=== PATIENT | female | born 1975 | race African-American/Black ===

== ENCOUNTER 2016-08-16 09:33 | Emergency (ER) | payer MEDICAID ==
[~2016-08-16] VITALS: Ht 157.5 cm; Wt 97.0 kg
[~2016-08-16 09:33] MED LIST: MOBI15TA PO
[2016-08-16 09:40] VITALS: BP 145/92; PULSE 100; RESP 16; TEMP 98.9; O2SAT 98
[2016-08-16] MEDS ORDERED: ULTR50TA5 PO (10:29)
[2016-08-16] MEDS ORDERED: BACT800T5 PO (10:29)
--- NOTE | 2016-08-16 10:30 | PD ---
HPI . Pain and swelling of the right fourth finger Chief Complaint: Skin Problem Time Seen by Provider: 10:25 Travel History International Travel<30 days: No Contact w/Intl Traveler<30days: No Traveled to known affect area: No History of Present Illness HPI Patient presents with a one month history of pain and swelling at the tip of the right fourth finger. She has been treating it peroxide soaks. She states that it just won't go away. She has not had any fever. [id number]: Right fourth finger DURATION: One month TIMING: Continuous MODIFYING FACTORS: Unrelieved by peroxide soaks ASSOCIATED SYMPTOMS: No associated fever PFSH Past Medical History Anemia: Yes Cancer: No Cardiovascular Problems: No Diabetes: No Diminished Hearing: No Endocrine: No Gastrointestinal Disorders: No Genitourinary: No Hepatitis: No Hiatal Hernia: No Hypertension: No Immune Disorder: Yes (possible fibromyalgia) Musculoskeletal: Yes (mid back pain) Neurologic: No Psychiatric: No Reproductive: No Respiratory: Yes Immunizations Current: Yes Thyroid Disease: No Influenza Vaccination: No ?: Not : 4 Para: 3 Miscarriage: 1 : 0 Ectopic : Yes Ovarian Cysts: Yes Tubal Ligation: Yes Past Surgical History AICD: No Gynecologic Surgery: Yes (tubaligation) Joint Replacement: No Pacemaker: No Other Surgery: Yes Social History Alcohol Use: Yes (occas) Tobacco Use: No (NEVER) Substance Use: No Allergies-Medications (Allergen,Severity, Reaction): Coded Allergies: No Known Allergies (Unverified , 08/16/16) Reported Meds & Prescriptions Reported Meds & Active Scripts Active No Active Prescriptions or Reported Medications Review of Systems Except as stated in HPI: all other systems reviewed are Neg General / Constitutional: No: Fever, Chills Skin: Positive Lesions Physical Exam Narrative GENERAL: Awake and alert and in no acute distress. SKIN: Warm and dry. She has some induration on the ulnar side of her right fourth fingernail. There is no drainage. There is no fluctuance. CARDIOVASCULAR: Regular rate and rhythm. RESPIRATORY: No accessory muscle use. MUSCULOSKELETAL: No obvious deformities. No edema. NEUROLOGICAL: Awake and alert. No obvious cranial nerve deficits. Motor grossly within normal limits. Normal speech. PSYCHIATRIC: Appropriate mood and affect; insight and judgment normal. Data Data Last Documented VS Vital Signs Date Time Temp Pulse Resp B/P Pulse Ox O2 Delivery O2 Flow Rate FiO2 08/16/16 09:40 98.9 100 16 145/92 98 MDM Medical Decision Making Medical Screen Exam Complete: Yes Emergency Medical Condition: Yes Differential Diagnosis My differential diagnosis includes but is not limited to localized wound infection, cellulitis, abscess Narrative Course Patient presents with pain and swelling around her right fourth fingernail. She has a paronychia on exam. It does not look "drainable." Diagnosis Primary Impression: Paronychia of finger of right hand Patient Instructions: General Instructions, Paronychia (ED) Additional Instructions: Warm Epsom salt and water soaks several times per day. Med/Other Pt SpecificInfo: Prescription(s) given Scripts Tramadol (Ultram)50 Mg Tab50 Mg PO Q4H PRN (PAIN) #12 TAB Ref 0 Prov:Darya Arora MD 08/16/16 Sulfamethoxazole-Trimethoprim (Bactrim DS)800-160 Mg Tab1 Tab PO BID #20 TAB Ref 0 Prov:Darya Arora MD 08/16/16 Disposition: 01 DISCHARGE HOME Condition: Stable Darya Arora MD Aug 16, 2016 10:30
== END 2016-08-16 10:41 | disposition home or self-care (01) ==
LOC: PHED 09:33
DX: L03.011 Cellulitis of right finger (principal)
CPT/HCPCS: 99282

== ENCOUNTER 2016-09-07 19:39 | Emergency (ER) | payer MEDICAID ==
[~2016-09-07] VITALS: Ht 157.5 cm; Wt 97.9 kg
[~2016-09-07 19:39] MED LIST changes: +BACT800T5 PO; -MOBI15TA PO; +ULTR50TA5 PO
[2016-09-07 19:41] VITALS: BP 118/73; PULSE 110; RESP 18; TEMP 98.5; O2SAT 98
[2016-09-07] MEDS ORDERED: SODIUM CHLORIDE 0.9% FLUSH 10 ML FLUSH IV FLUSH PRN (20:15)
[2016-09-07 20:27] LABS: AUTOMATED NEUTROPHIL # 2.9 TH/MM3 (1.8-7.7); BASOPHIL # 0.1 TH/MM3 (0-0.2); BASOPHIL % 1.3 % (0.0-2.0); EOSINOPHIL # 0.4 TH/MM3 (0-0.4); EOSINOPHIL % 5.7 % (0.0-4.0); HEMATOCRIT 33.1 % (35.0-46.0); LYMPH % 44.7 % (9.0-44.0); LYMPHOCYTE # 3.3 TH/MM3 (1.0-4.8); MEAN CELL VOLUME 79.7 FL (80.0-100.0); MEAN CORPUSCULAR HEMOGLOBIN 26.8 PG (27.0-34.0); MEAN CORPUSCULAR HGB CONC 33.6 % (32.0-36.0); MONO % 9.3 % (0.0-8.0); PLATELET COUNT 281 TH/MM3 (150-450); RED BLOOD COUNT 4.16 MIL/MM3 (4.00-5.30); RED CELL DISTRIBUTION WIDTH 14.4 % (11.6-17.2); WHITE BLOOD COUNT 7.4 TH/MM3 (4.0-11.0)
[2016-09-07 20:29] LABS: BLOOD, URINE NEG (NEG); GLUCOSE,URINE NEG (NEG); KETONE, URINE NEG (NEG); NITRITE,URINE NEG (NEG); PH, URINE 6.5 (5.0-8.5)
[2016-09-07 20:32] LABS: URINE COLOR YELLOW (YELLW/STRAW)
[2016-09-07 20:34] LABS: HEMO FLAGS DIFF FINAL
[2016-09-07 20:36] LABS: RBC, URINE 0-2 /hpf (0-3); SQUAMOUS EPITHELIAL CELL URINE 0-5 /hpf (0-5); WBC, URINE 0-2 /hpf (0-5)
[2016-09-07 20:37] LABS: COMMENT (UR) CULT NOT INDICATED; CULTURE IF INDICATED CULT NOT INDICATED
[2016-09-07 20:43] LABS: CHLORIDE 107 MEQ/L (98-107); POTASSIUM 3.6 MEQ/L (3.5-5.1); SODIUM (NA) 141 MEQ/L (136-145)
[2016-09-07 20:47] LABS: ANION GAP 7 MEQ/L (5-15); BICARBONATE 27.4 MEQ/L (21.0-32.0); BLOOD UREA NITROGEN 15 MG/DL (7-18)
[2016-09-07 20:50] LABS: ALT (GPT) 24 U/L (10-53); AST (GOT) 13 U/L (15-37); GLOMERULAR FILTRATION RATE 149 ML/MIN (>89)
[2016-09-07 20:51] LABS: TOTAL BILIRUBIN ADULT 0.3 MG/DL (0.2-1.0)
[2016-09-07 20:53] LABS: ALKALINE PHOSPHATASE 94 U/L (45-117)
[2016-09-07] MEDS ORDERED: cefTRIAXone INJ 250 MG in SODIUM CHLORIDE 0.9% INJ 100 ML IV ONE (22:30)
[2016-09-07] MEDS ORDERED: AZITHROMYCIN 250 MG TAB PO ONE (22:30)
[2016-09-07] MEDS ORDERED: METR0.7528 VAGINAL (22:31)
[2016-09-07] MEDS ORDERED: PROT40TA PO (22:31)
--- NOTE | 2016-09-07 22:31 | PD ---
HPI Chief Complaint: Abdominal Pain Time Seen by Provider: 20:01 Travel History International Travel<30 days: No Contact w/Intl Traveler<30days: No Traveled to known affect area: No History of Present Illness HPI 41-year-old female presents to the emergency department for complaint of intermittent abdominal pain and vaginal discharge. Patient states symptoms have been present times one week. Patient denies any pain at this time. Abdominal pain when present is upper abdomen but sometimes suprapubic. Patient denies vaginal bleeding. No dysuria frequency urgency hematuria or flank pain. No nausea vomiting diarrhea or constipation. No hematemesis no coffee-ground emesis no melena or hematochezia. No injury or fall. Patient denies any recent respiratory illness symptoms no headache no sore throat or ear pain no sinus pressure drainage no shortness of breath no cough no congestion no chest pain no palpitations no referred neck jaw back shoulder arm pain. Patient denies ; LMP 08/26/16. PFSH Past Medical History Narrative Medical Anemia ovarian cyst Ab1 ectopic ovarian cyst tubal ligation no tobacco use positive alcohol use nursing notes reviewed Anemia: Yes Cancer: No Cardiovascular Problems: No Diabetes: No Diminished Hearing: No Endocrine: No Gastrointestinal Disorders: No Genitourinary: No Hepatitis: No Hiatal Hernia: No Hypertension: No Immune Disorder: Yes (possible fibromyalgia) Musculoskeletal: Yes (mid back pain) Neurologic: No Psychiatric: No Reproductive: No Respiratory: Yes Immunizations Current: Yes Thyroid Disease: No ?: Not LMP: 08-26-16 : 4 Para: 3 Miscarriage: 1 : 0 Ectopic : Yes Ovarian Cysts: Yes Tubal Ligation: Yes Past Surgical History AICD: No Gynecologic Surgery: Yes (tubaligation) Joint Replacement: No Pacemaker: No Other Surgery: Yes Social History Alcohol Use: Yes (occas) Tobacco Use: No (NEVER) Substance Use: No Allergies-Medications (Allergen,Severity, Reaction): Coded Allergies: No Known Allergies (Unverified , 09/07/16) Reported Meds & Prescriptions Reported Meds & Active Scripts Active Metrogel Vaginal Gel (Metronidazole Vaginal Gel) 0.75 % Gel 1 Appl VAGINAL HS Protonix (Pantoprazole Sodium) 40 Mg Tab 40 Mg PO DAILY Review of Systems Except as stated in HPI: all other systems reviewed are Neg General / Constitutional: No: Fever HENT: No: Congestion Cardiovascular: No: Chest Pain or Discomfort Respiratory: No: Shortness of Breath Gastrointestinal: Positive: Abdominal Pain (intermittent) Genitourinary: Positive: Discharge, No: Dysuria, Vaginal Bleeding Musculoskeletal: No: Myalgias, Arthralgias Skin: No Rash Neurologic: No: Weakness, Dizziness Psychiatric: No: Anxiety Hematologic/Lymphatic: No: Lymph Node Enlargement Physical Exam Narrative GENERAL: Well-developed well-nourished obese female in no acute distress no respiratory distress SKIN: Warm and dry. HEAD: Normocephalic. EYES: No scleral icterus. No injection or drainage. NECK: Supple, trachea midline. No JVD or lymphadenopathy. CARDIOVASCULAR: Regular rate and rhythm without murmurs, gallops, or rubs. RESPIRATORY: Breath sounds equal bilaterally. No accessory muscle use. GASTROINTESTINAL: Abdomen soft, non-tender, nondistended. Pelvic exam: Normal external exam; bimanual exam scant white discharge no clots no tissue cervical os closed; no cervical motion tenderness no uterine enlargement no adnexal mass or tenderness MUSCULOSKELETAL: No cyanosis, or edema. BACK: Nontender without obvious deformity. No CVA tenderness. Data Data Last Documented VS Vital Signs Date Time Temp Pulse Resp B/P Pulse Ox O2 Delivery O2 Flow Rate FiO2 09/07/16 23:19 78 16 122/76 100 09/07/16 19:41 98.5 Orders Complete Blood Count With Diff (09/07/16 20:01) Comprehensive Metabolic Panel (09/07/16 20:01) Lipase (09/07/16 20:01) Urinalysis - C+S If Indicated (09/07/16 20:01) Iv Access Insert/Monitor (09/07/16 20:01) Ecg Monitoring (09/07/16 20:01) Oximetry (09/07/16 20:01) Sodium Chloride 0.9% Flush (Ns Flush) (09/07/16 20:15) Ed Urine Pregnancytest Poc (09/07/16 20:01) Wet Prep Profile (09/07/16 22:14) Gc And Chlamydia Pcr (09/07/16 22:14) Ceftriaxone Inj (Rocephin Inj) (09/07/16 22:30) Azithromycin (Zithromax) (09/07/16 22:30) Labs Laboratory Tests Test 409/07/16 09/07/16 20:10 20:15 22:25 Urine Color YELLOW Urine Turbidity CLEAR Urine pH 6.5 Urine Specific [place] 1.025 Urine Protein NEG mg/dL Urine Glucose (UA) NEG mg/dL Urine Ketones NEG mg/dL Urine Occult Blood NEG Urine Nitrite NEG Urine Bilirubin NEG Urine Leukocyte Esterase NEG Urine RBC 0-2 /hpf Urine WBC 0-2 /hpf Urine Squamous Epithelial 0-5 /hpf Cells Urine Bacteria NONE /hpf Microscopic Urinalysis Comment CULT NOT INDICATED White Blood Count 7.4 TH/MM3 Red Blood Count 4.16 MIL/MM3 Hemoglobin 11.1 GM/DL Hematocrit 33.1 % Mean Corpuscular Volume 79.7 FL Mean Corpuscular Hemoglobin 26.8 PG Mean Corpuscular Hemoglobin 33.6 % Concent Red Cell Distribution Width 14.4 % Platelet Count 281 TH/MM3 Mean Platelet Volume 9.4 FL Neutrophils (%) (Auto) 39.0 % Lymphocytes (%) (Auto) 44.7 % Monocytes (%) (Auto) 9.3 % Eosinophils (%) (Auto) 5.7 % Basophils (%) (Auto) 1.3 % Neutrophils # (Auto) 2.9 TH/MM3 Lymphocytes # (Auto) 3.3 TH/MM3 Monocytes # (Auto) 0.7 TH/MM3 Eosinophils # (Auto) 0.4 TH/MM3 Basophils # (Auto) 0.1 TH/MM3 CBC Comment DIFF FINAL Differential Comment Sodium Level 141 MEQ/L Potassium Level 3.6 MEQ/L Chloride Level 107 MEQ/L Carbon Dioxide Level 27.4 MEQ/L Anion Gap 7 MEQ/L Blood Urea Nitrogen 15 MG/DL Creatinine 0.55 MG/DL Estimat Glomerular Filtration 149 ML/MIN Rate Random Glucose 109 MG/DL Calcium Level 8.5 MG/DL Total Bilirubin 0.3 MG/DL Aspartate Amino Transf 13 U/L (AST/SGOT) Alanine Aminotransferase 24 U/L (ALT/SGPT) Alkaline Phosphatase 94 U/L Total Protein 7.0 GM/DL Albumin 3.0 GM/DL Lipase 125 U/L Clue Cells (Wet Prep) NONE SEEN Vaginal Trichomonas (Wet Prep) NONE SEEN Vaginal Yeast (Wet Prep) NONE SEEN Chlamydia trachomatis DNA NOT DETECTED (PCR) Neisseria gonorrhoeae DNA NOT DETECTED (PCR) MDM Medical Decision Making Medical Screen Exam Complete: Yes Emergency Medical Condition: Yes Medical Record Reviewed: Yes Interpretation(s) CBC & BMP Diagram 09/07/16 20:15 [id number]-ef-[id number] hCG negative Urinalysis normal By private negative Differential Diagnosis Abdominal pain, gastritis, peptic ulcer disease, pancreatitis, biliary colic, , appendicitis, UTI, vaginosis, PID Narrative Course Minimal tenderness on exam of the abdomen no guarding or rebound no focal area of discomfort. Patient waiting on lab results values found to be in normal range Pelvic exam specimen collected no cervical motion tenderness patient concerned about possible STI exposure therefore treated prophylactically with Rocephin and azithromycin Patient stable for outpatient management and follow-up with primary care provider Diagnosis Primary Impression: Gastritis Additional Impression: Vaginosis Referrals: [facility] call for appointment Primary Care Physician call for appointment Patient Instructions: General Instructions Additional Instructions: take medications as prescribed return to the ED as needed increase fluid hydration avoid fried and/or fatty foods keep your [employer] appointment follow up with your PCP Med/Other Pt SpecificInfo: Prescription(s) given Scripts Metronidazole Vaginal Gel (Metrogel Vaginal Gel)0.75 % Gel1 Appl VAGINAL HS #1 TUBE Ref 0 Prov:Toña Mccartney MD 09/07/16 Pantoprazole (Protonix)40 Mg Tab40 Mg PO DAILY #15 TAB Ref 0 Prov:Toña Mccartney MD 09/07/16 Disposition: 01 DISCHARGE HOME Condition: Fair Toña Mccartney MD Sep 07, 2016 22:31
[2016-09-07 23:19] VITALS: BP 122/76
[2016-09-08 02:03] LABS: CHLAMYDIA PCR NOT DETECTED (NOT DETECT); NEISSERIA PCR NOT DETECTED (NOT DETECT)
== END 2016-09-07 23:30 | disposition home or self-care (01) ==
LOC: PHED 19:39
DX: K29.70 Gastritis, unspecified, without bleeding (principal); N76.0 Acute vaginitis; Z86.2 Personal history of diseases of the blood and blood-forming organs and certain disorders involving the immune mechanism; Z87.39 Personal history of other diseases of the musculoskeletal system and connective tissue; Z87.09 Personal history of other diseases of the respiratory system; Z87.42 Personal history of other diseases of the female genital tract
CPT/HCPCS: 80053; 81001; 83690; 84703; 85025; 87210; 87491; 87591; 96365; 99284; J0696

== ENCOUNTER 2016-10-30 08:00 | Emergency (ER) | payer MEDICAID ==
[~2016-10-30] VITALS: Ht 157.5 cm; Wt 97.0 kg
[~2016-10-30 08:00] MED LIST changes: -BACT800T5 PO; +METR0.7528 VAGINAL; +PROT40TA PO; -ULTR50TA5 PO
[2016-10-30 08:04] VITALS: BP 145/91; PULSE 112; RESP 16; TEMP 98.2; O2SAT 97
[2016-10-30 08:35] VITALS: BP 140/84; PULSE 97; RESP 16; O2SAT 98
[2016-10-30 08:50] VITALS: RESP 16; O2SAT 98
--- NOTE | 2016-10-30 08:52 | PD ---
HPI Chief Complaint: Chest Pain Time Seen by Provider: 08:36 Travel History International Travel<30 days: No Contact w/Intl Traveler<30days: No Traveled to known affect area: No History of Present Illness HPI 41-year-old female complains of headache, chest pain, shortness of breath. Patient states that she has intermittent headache prolonged time. Patient states that headache is aching headache diffuse over the head. Patient denies any visual change. Patient denies any neck pain. Patient states that she had intermittent substernal chest pain for the past 2 weeks. Patient states the pain is aching pain and sharp pain without radiation. Patient denies palpitation nausea diaphoresis. Patient denies any coughing congestion. Patient denies any fever chills. Patient denies abdominal pain. Patient denies any focal weakness or numbness of extremity. Patient denies history hypertension, diabetes, dyslipidemia. Patient is a nonsmoker. Patient does not have any family history of heart disease. 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 Patient has not seen any local physician for follow up with that. 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) Diabetes: No Diminished Hearing: No Endocrine: No Gastrointestinal Disorders: No Genitourinary: No Hepatitis: No Hiatal Hernia: No Hypertension: No Immune Disorder: Yes (possible fibromyalgia) Musculoskeletal: Yes (mid back pain) Neurologic: No Psychiatric: No Reproductive: No Respiratory: Yes Immunizations Current: Yes Thyroid Disease: No ?: Not : 4 Para: 3 Miscarriage: 1 : 0 Ectopic : Yes Ovarian Cysts: Yes Tubal Ligation: Yes Past Surgical History AICD: No Gynecologic Surgery: Yes (tubaligation) Joint Replacement: No Pacemaker: No Other Surgery: Yes Social History Alcohol Use: Yes (occas) Tobacco Use: No (NEVER) Substance Use: No Allergies-Medications (Allergen,Severity, Reaction): Coded Allergies: No Known Allergies (Unverified , 10/30/16) Reported Meds & Prescriptions Reported Meds & Active Scripts Active No Active Prescriptions or Reported Medications Review of Systems HENT: Positive: Headaches Cardiovascular: Positive: Chest Pain or Discomfort Respiratory: Positive: Shortness of Breath Physical Exam Narrative GENERAL: Well-nourished, well-developed patient. SKIN: Focused skin assessment warm/dry. HEAD: Normocephalic. EYES: No scleral icterus. No injection or drainage. Pupils 3 mm equal reactive. NECK: Supple, trachea midline. No JVD or lymphadenopathy. No meningismus CARDIOVASCULAR: Regular rate and rhythm without murmurs, gallops, or rubs. RESPIRATORY: Breath sounds equal bilaterally. No accessory muscle use. GASTROINTESTINAL: Abdomen soft, non-tender, nondistended. MUSCULOSKELETAL: No cyanosis, or edema. BACK: Nontender without obvious deformity. No CVA tenderness. Neurologic exam normal. Data Data Last Documented VS Vital Signs Date Time Temp Pulse Resp B/P Pulse Ox O2 Delivery O2 Flow Rate FiO2 10/30/16 08:50 16 98 Room Air 10/30/16 08:04 98.2 112 145/91 Orders Electrocardiogram (10/30/16 08:09) Complete Blood Count With Diff (10/30/16 08:46) Comprehensive Metabolic Panel (10/30/16 08:46) Creatine Kinase (Cpk) (10/30/16 08:46) Troponin I (10/30/16 08:46) Prothrombin Time / Inr (Pt) (10/30/16 08:46) Act Partial Throm Time (Ptt) (10/30/16 08:46) Thyroid Stimulating Hormone (10/30/16 08:46) Chest, Single Ap (10/30/16 08:46) Iv Access Insert/Monitor (10/30/16 08:46) Ecg Monitoring (10/30/16 08:46) Oximetry (10/30/16 08:46) Ketorolac Inj (Toradol Inj) (10/30/16 09:00) Labs Laboratory Tests Test 10/30/16 09:30 White Blood Count 6.3 TH/MM3 Red Blood Count 4.09 MIL/MM3 Hemoglobin 11.0 GM/DL Hematocrit 33.0 % Mean Corpuscular Volume 80.8 FL Mean Corpuscular Hemoglobin 26.9 PG Mean Corpuscular Hemoglobin 33.2 % Concent Red Cell Distribution Width 14.6 % Platelet Count 280 TH/MM3 Mean Platelet Volume 9.3 FL Neutrophils (%) (Auto) 46.0 % Lymphocytes (%) (Auto) 35.6 % Monocytes (%) (Auto) 10.2 % Eosinophils (%) (Auto) 7.1 % Basophils (%) (Auto) 1.1 % Neutrophils # (Auto) 3.0 TH/MM3 Lymphocytes # (Auto) 2.2 TH/MM3 Monocytes # (Auto) 0.6 TH/MM3 Eosinophils # (Auto) 0.4 TH/MM3 Basophils # (Auto) 0.1 TH/MM3 CBC Comment DIFF FINAL Differential Comment Prothrombin Time 11.1 SEC Prothromb Time International 1.0 RATIO Ratio Activated Partial 27.1 SEC Thromboplast Time Sodium Level 142 MEQ/L Potassium Level 4.5 MEQ/L Chloride Level 109 MEQ/L Carbon Dioxide Level 24.9 MEQ/L Anion Gap 8 MEQ/L Blood Urea Nitrogen 14 MG/DL Creatinine 0.37 MG/DL Estimat Glomerular Filtration 235 ML/MIN Rate Random Glucose 107 MG/DL Calcium Level 8.9 MG/DL Total Bilirubin 0.5 MG/DL Aspartate Amino Transf 27 U/L (AST/SGOT) Alanine Aminotransferase 20 U/L (ALT/SGPT) Alkaline Phosphatase 91 U/L Total Creatine Kinase 105 U/L Troponin I LESS THAN 0.02 NG/ML Total Protein 6.8 GM/DL Albumin 2.8 GM/DL Thyroid Stimulating Hormone LESS THAN 3rd Gen 0.005 uIU/ML MDM Medical Decision Making Medical Screen Exam Complete: Yes Emergency Medical Condition: Yes Interpretation(s) 10:23 AM. EKG shows sinus rhythm nonspecific ST-T wave change. Last Impressions Chest X-Ray 10/30/16 0846 Signed Impressions: Service Date/Time: Sunday, October 30, 2016 08:54 - CONCLUSION: No acute disease. No significant change has occurred. Jay Eugene MD 10:23 AM. CBC within normal limit. CMP within normal limit. Cardiac enzymes are normal. TSH less than 0.005. Differential Diagnosis Differential diagnosis including migraine headache, tension headache, cluster headache, pneumonia, bronchitis, angina, [place], PE, pneumothorax. Narrative Course 41-year-old female with headache, shortness of breath, chest pain. Diagnosis Primary Impression: Atypical chest pain Additional Impression: Hyperthyroidism Patient Instructions: General Instructions Additional Instructions: Metoprolol as directed. Fioricet as needed for headache. Follow-up with local physician for thyroid check and treatment. Return if worse. Return immediately if increasing chest pain or shortness of breath. Med/Other Pt SpecificInfo: Prescription(s) given Scripts Pgsacwjozo-Loxkwycvnscqv-Ofejtopn (Fioricet)50-300-40 Mg Cap1-2 Cap PO Q6H PRN ( HEADACHE) #30 CAP Ref 0 Prov:Lino Iglesias MD 10/30/16 Metoprolol Tartrate 25 Mg Tab25 Mg PO BID #60 TAB Ref 0 Prov:Lino Iglesias MD 10/30/16 Disposition: 01 DISCHARGE HOME Condition: Stable Lino Iglesias MD Oct 30, 2016 08:52
[2016-10-30] MEDS ORDERED: KETOROLAC TROMETHAMINE 30 MG/ML (IVP) VIAL IV PUSH ONE (09:00)
--- NOTE | 2016-10-30 09:10 | RADHPO ---
EXAM DATE/TIME: 10/30/2016 08:54 [facility] COMPARISON: CHEST SINGLE AP, January 20, 2016, 21:19. INDICATIONS : Short of breath, chest pain, migrane. Patient states she has a mass in her chest. MEDICAL HISTORY : Ovarian cyst. SURGICAL HISTORY : Tubal ligation. Left knee ENCOUNTER: Initial ACUITY: 3 days PAIN SCORE: 7/10 LOCATION: chest FINDINGS: A single view of the chest demonstrates the lungs to be symmetrically aerated without evidence of mas s, infiltrate or effusion. The cardiomediastinal contours are unremarkable. Osseous structures are intact. CONCLUSION: No acute disease. No significant change has occurred. Jay Eugene MD on October 30, 2016 at 9:08 Board Certified Radiologist. This report was verified electronically.
[2016-10-30 09:35] VITALS: BP 128/81; PULSE 92; RESP 16; O2SAT 98
[2016-10-30 09:38] LABS: BASOPHIL # 0.1 TH/MM3 (0-0.2); BASOPHIL % 1.1 % (0.0-2.0); EOSINOPHIL # 0.4 TH/MM3 (0-0.4); EOSINOPHIL % 7.1 % (0.0-4.0); LYMPH % 35.6 % (9.0-44.0); LYMPHOCYTE # 2.2 TH/MM3 (1.0-4.8); MEAN CELL VOLUME 80.8 FL (80.0-100.0); MEAN CORPUSCULAR HEMOGLOBIN 26.9 PG (27.0-34.0); MEAN CORPUSCULAR HGB CONC 33.2 % (32.0-36.0); MONO % 10.2 % (0.0-8.0); PLATELET COUNT 280 TH/MM3 (150-450); RED BLOOD COUNT 4.09 MIL/MM3 (4.00-5.30); RED CELL DISTRIBUTION WIDTH 14.6 % (11.6-17.2); WHITE BLOOD COUNT 6.3 TH/MM3 (4.0-11.0)
[2016-10-30 09:40] LABS: HEMO FLAGS DIFF FINAL
[2016-10-30 09:56] LABS: APTT (PATIENT) 27.1 SEC (24.3-30.1); PROTHROMBIN TIME - PATIENT 11.1 SEC (9.8-11.6)
[2016-10-30 09:57] LABS: BICARBONATE 24.9 MEQ/L (21.0-32.0); BLOOD UREA NITROGEN 14 MG/DL (7-18)
[2016-10-30 09:58] LABS: ANION GAP 8 MEQ/L (5-15); CHLORIDE 109 MEQ/L (98-107); SODIUM (NA) 142 MEQ/L (136-145)
[2016-10-30 09:59] LABS: POTASSIUM 4.5 MEQ/L (3.5-5.1)
[2016-10-30 10:00] LABS: ALT (GPT) 20 U/L (10-53); AST (GOT) 27 U/L (15-37); GLOMERULAR FILTRATION RATE 235 ML/MIN (>89)
[2016-10-30 10:02] LABS: TOTAL BILIRUBIN ADULT 0.5 MG/DL (0.2-1.0)
[2016-10-30 10:03] LABS: ALKALINE PHOSPHATASE 91 U/L (45-117); CREATINE KINASE 105 U/L (26-192)
--- NOTE | 2016-10-30 10:30 | EKG ---
Date Performed: 10/30/2016 Time Performed: 08:09:06 PTAGE: 41 years EKG: Sinus tachycardia Normal ECG except for rate PREVIOUS TRACING : 01/21/2016 08.42 COMPARED TO PRIOR ELECTROCARDIOGRAM, Rate has increas ed. DOCTOR: Nehemiah Elena Interpretating Date/Time 10/30/2016 10:28:03
[2016-10-30] MEDS ORDERED: METO25TA3 PO (10:34)
[2016-10-30 10:35] VITALS: BP 130/86; PULSE 94; RESP 16; O2SAT 98
[2016-10-30] MEDS ORDERED: BUTA1CAP PO (10:35)
[2016-10-30 11:01] VITALS: RESP 16
== END 2016-10-30 11:23 | disposition home or self-care (01) ==
LOC: PHED 08:00
DX: R07.89 Other chest pain (principal); E05.90 Thyrotoxicosis, unspecified without thyrotoxic crisis or storm
CPT/HCPCS: 71010; 80053; 82550; 84443; 84484; 85025; 85610; 85730; 93005; 96374; 99285; J1885

== ENCOUNTER 2017-02-14 21:48 | Emergency (ER) | payer MEDICAID ==
[~2017-02-14] VITALS: Ht 157.5 cm; Wt 101.8 kg
[~2017-02-14 21:48] MED LIST changes: +BUTA1CAP PO; +METO25TA3 PO; -METR0.7528 VAGINAL; -PROT40TA PO
[2017-02-14] MEDS ORDERED: METHI10 PO (21:58)
[2017-02-14 22:00] VITALS: BP 141/88; PULSE 92; RESP 16; TEMP 99.1; O2SAT 98
[2017-02-14] MEDS ORDERED: NAPR500T PO (22:00)
--- NOTE | 2017-02-14 22:31 | PD ---
HPI Chief Complaint: Pain: Acute or Chronic Time Seen by Provider: 22:06 Travel History International Travel<30 days: No Contact w/Intl Traveler<30days: No Traveled to known affect area: No History of Present Illness HPI This 42-year-old female is complaining of a hoarse voice. She says been going on for couple of weeks. She's had some sore throat. Her voice comes and goes. She's had some pain in her low left leg the day. She had surgery on the left leg 2 years ago. There is been no recent injury. Her left ear is hurting today. She has a history of hyperthyroidism. She has been on methimazole for the last 2 months. 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) Diabetes: No Diminished Hearing: No Endocrine: No Gastrointestinal Disorders: No Genitourinary: No Hepatitis: No Hiatal Hernia: No Hypertension: No Immune Disorder: Yes (possible fibromyalgia) Musculoskeletal: Yes (mid back pain) Neurologic: No Psychiatric: No Reproductive: No Respiratory: Yes Immunizations Current: Yes Thyroid Disease: No ?: Not LMP: 01/31/17 : 4 Para: 3 Miscarriage: 1 : 0 Ectopic : Yes Ovarian Cysts: Yes Tubal Ligation: Yes Past Surgical History AICD: No Gynecologic Surgery: Yes (tubaligation) Joint Replacement: No Pacemaker: No Other Surgery: Yes Social History Alcohol Use: Yes (occas) Tobacco Use: No (NEVER) Substance Use: No Allergies-Medications (Allergen,Severity, Reaction): Coded Allergies: No Known Allergies (Unverified , 02/14/17) Reported Meds & Prescriptions Reported Meds & Active Scripts Active Fioricet (Lhsxcomnkw-Erlzwzqnygzhk-Areptzyw) 50-300-40 Mg Cap 1-2 Cap PO Q6H PRN Reported Naproxen 500 Mg Tab 500 Mg PO Q6HR PRN Methimazole 10 Mg Tab 15 Mg PO DAILY Review of Systems General / Constitutional: No: Fever, Chills Eyes: No: Diploplia, Blurred Vision, Visual changes HENT: Positive: Sore Throat, Earache, No: Headaches, Vertigo Cardiovascular: No: Chest Pain or Discomfort, Palpitations Respiratory: No: Cough, Shortness of Breath Gastrointestinal: No: Nausea, Vomiting Genitourinary: No: Urgency, Frequency Physical Exam Narrative GENERAL: Well-developed female. Her voice is force at times. SKIN: Focused skin assessment warm/dry. HEAD: Atraumatic. Normocephalic. EYES: Pupils equal and round. No scleral icterus. No injection or drainage. ENT: No nasal bleeding or discharge. Mucous membranes pink and moist. The left. There was suprapubic pieces of hair and somewhat. This been irrigated out NECK: Trachea midline. No JVD. Thyroid is symmetrically enlarged CARDIOVASCULAR: Regular rate and rhythm. No murmur appreciated. RESPIRATORY: No accessory muscle use. Clear to auscultation. Breath sounds equal bilaterally. GASTROINTESTINAL: Abdomen soft, non-tender, nondistended. Hepatic and splenic margins not palpable. MUSCULOSKELETAL: No obvious deformities. No clubbing. No cyanosis. There is tenderness behind the right knee especially below the joint. No palpable cord. NEUROLOGICAL: Awake and alert. No obvious cranial nerve deficits. Motor grossly within normal limits. Normal speech. PSYCHIATRIC: Appropriate mood and affect; insight and judgment normal. Data Data Last Documented VS Vital Signs Date Time Temp Pulse Resp B/P (MAP) Pulse Ox O2 Delivery O2 Flow Rate FiO2 02/14/17 22:00 99.1 92 16 141/88 (105) 98 Orders Orders Us Leg Venous Doppler (02/14/17 22:14) Ear Irrigation (02/14/17 22:25) [facility] Medical Decision Making Medical Screen Exam Complete: Yes Emergency Medical Condition: Yes Medical Record Reviewed: Yes Differential Diagnosis Differential includes laryngitis, recurrent laryngeal nerve compression, phlebitis, musculoskeletal pain Narrative Course Voice abnormalities most likely due to laryngitis middle think antibiotics are warranted. Cannot be entirely sure that this is not related to her thyroid issue but seems unlikely. She is seeing a physician on a regular basis for her thyroid ultrasound has been ordered to assess for DVT Diagnosis Primary Impression: Laryngitis Nicolas Greer MD Feb 14, 2017 22:31
--- NOTE | 2017-02-14 23:54 | RADRPT ---
EXAM DATE/TIME: 02/14/2017 23:13 [facility] COMPARISON: No previous studies available for comparison. INDICATIONS : Left leg pain. MEDICAL HISTORY : Hyperthyroidism. . Mediastinum mass. Ovarian cysts. Ectopic . Anemia. SURGICAL HISTORY : Tubal ligation. Left knee surgery. ENCOUNTER: Initial ACUITY: 1 day PAIN SCORE: 5/10 LOCATION: Left leg. TECHNIQUE: Venous ultrasound of the leg was performed from the inguinal ligament to the proximal calf. Real-chaka e, color Doppler and spectral tracing, compression and augmentation techniques were used. FINDINGS: There is normal compressibility of the deep venous system from the inguinal region to the proximal ca lf. No echogenic clot is seen in the lumen of the common femoral, femoral, popliteal, and posterior tibial veins. There is a normal response of the venous system to proximal and distal augmentation an d respiration. CONCLUSION: Normal examination. Mario Rees MD on February 14, 2017 at 23:46 Board Certified Radiologist. This report was verified electronically.
[2017-02-15 00:15] VITALS: BP 113/65
== END 2017-02-15 00:20 | disposition home or self-care (01) ==
LOC: PHED 21:48
DX: J04.0 Acute laryngitis (principal); M79.605 Pain in left leg
CPT/HCPCS: 93971; 99284

== ENCOUNTER 2017-04-16 19:00 | Emergency (ER) | payer SELFPAY ==
[~2017-04-16] VITALS: Ht 157.5 cm; Wt 101.7 kg
[~2017-04-16 19:00] MED LIST changes: +METHI10 PO; -METO25TA3 PO; +NAPR500T2 PO
[2017-04-16 19:13] VITALS: BP 146/84; PULSE 84; RESP 18; TEMP 98.8; O2SAT 98
[2017-04-16 19:49] LABS: BLOOD, URINE NEG (NEG); GLUCOSE,URINE NEG (NEG); KETONE, URINE NEG (NEG); NITRITE,URINE NEG (NEG)
[2017-04-16 19:56] LABS: MUCUS URINE FEW /lpf (OCC); SQUAMOUS EPITHELIAL CELL URINE 0-5 /hpf (0-5); URINE COLOR YELLOW (YELLW/STRAW)
[2017-04-16 19:57] LABS: BACTERIA, URINE MOD /hpf; COMMENT (UR) CULTURE INDICATED; CULTURE IF INDICATED CULTURE INDICATED; WBC, URINE 0-2 /hpf (0-5)
--- NOTE | 2017-04-16 20:06 | PD ---
HPI Chief Complaint: Complaint Time Seen by Provider: 19:35 Travel History International Travel<30 days: No Contact w/Intl Traveler<30days: No Traveled to known affect area: No History of Present Illness HPI Patient is a 42-year-old female who presents to emergency room with complaints of vaginal discharge with right-sided pelvic pain. Patient reports that for the past week, she has had increased vaginal pruritus as well as thick white chunky discharge from her vagina. She reports that she is sexually active with one partner, does use condoms and recently changed the brand of condoms she uses. Patient reports that she has never been diagnosed with an STD in the past , she tried called her pcp but cannot be seen until the beginning of May. Reports that for the past few months, she's been having intermittent right lower pelvis pain. Patient reports that pain comes and goes, reports that it usually last a few minutes at a time and resolves on its own. Reports that she was diagnosed with a 7 cm ovarian cyst on the right side past, patient is concerned that the ovarian cyst might be getting bigger. Patient with no abdominal pain at this time, patient denies any nausea or vomiting, denies any diarrhea or constipation. Patient with no fever or chills, patient with no other complaints. 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) Diabetes: No Patient Takes Glucophage: No Diminished Hearing: No Endocrine: No Gastrointestinal Disorders: No Genitourinary: No Hepatitis: No Hiatal Hernia: No Hypertension: No Immune Disorder: Yes (possible fibromyalgia) Musculoskeletal: Yes (mid back pain) Neurologic: No Psychiatric: No Reproductive: Yes (OVARIAN CYST) Respiratory: Yes Immunizations Current: Yes Thyroid Disease: Yes Tetanus Vaccination: Unknown Influenza Vaccination: No ?: Not LMP: 03/29/2017 : 4 Para: 3 Miscarriage: 1 : 0 Ectopic : Yes (1996) Ovarian Cysts: Yes Tubal Ligation: Yes Past Surgical History Surgical History: No Previous Surgery AICD: No Gynecologic Surgery: Yes (tubaligation) Joint Replacement: No Pacemaker: No Other Surgery: Yes Social History Alcohol Use: Yes (RARELY) Tobacco Use: No Substance Use: No Allergies-Medications (Allergen,Severity, Reaction): Coded Allergies: No Known Allergies (Verified Adverse Reaction, Unknown, 04/16/17) Reported Meds & Prescriptions Reported Meds & Active Scripts Active Diflucan (Fluconazole) 150 Mg Tab 150 Mg PO ONCE Fioricet (Cdwdhcanfd-Yndiqqkfxabcz-Fhnnclya) 50-300-40 Mg Cap 1-2 Cap PO Q6H PRN Reported Naproxen 500 Mg Tab 500 Mg PO Q6HR PRN Methimazole 10 Mg Tab 15 Mg PO DAILY Review of Systems General / Constitutional: No: Fever Eyes: No: Visual changes HENT: No: Headaches Cardiovascular: No: Chest Pain or Discomfort Respiratory: No: Shortness of Breath Gastrointestinal: No: Abdominal Pain Genitourinary: Positive: Pelvic Pain, Discharge, No: Urgency, Dysuria Musculoskeletal: No: Pain Skin: No Rash Neurologic: No: Weakness Psychiatric: No: Depression Endocrine: No: Polydipsia Hematologic/Lymphatic: No: Easy Bruising Physical Exam Narrative GENERAL: No acute distress, nontoxic SKIN: Focused skin assessment warm/dry. HEAD: Atraumatic. Normocephalic. EYES: Pupils equal and round. No scleral icterus. No injection or drainage. ENT: No nasal bleeding or discharge. Mucous membranes pink and moist. NECK: Trachea midline. No JVD. CARDIOVASCULAR: Regular rate and rhythm. No murmur appreciated. RESPIRATORY: No accessory muscle use. Clear to auscultation. Breath sounds equal bilaterally. GASTROINTESTINAL: Abdomen soft, non-tender, nondistended. Hepatic and splenic margins not palpable. : pelvic exam performed with RN at bedside, patient with closed cervical os, No cmt or adnexal tenderness, patient with thick white vaginal discharge MUSCULOSKELETAL: No obvious deformities. No clubbing. No cyanosis. No edema. NEUROLOGICAL: Awake and alert. No obvious cranial nerve deficits. Motor grossly within normal limits. Normal speech. PSYCHIATRIC: Appropriate mood and affect; insight and judgment normal. Data Data Last Documented VS Vital Signs Date Time Temp Pulse Resp B/P (MAP) Pulse Ox O2 Delivery O2 Flow Rate FiO2 04/16/17 19:13 98.8 84 18 146/84 (104) 98 Orders Orders Urinalysis - C+S If Indicated (04/16/17 19:35) Ed Urine Pregnancytest Poc (04/16/17 19:35) Gc And Chlamydia Pcr (04/16/17 19:40) Wet Prep Profile (04/16/17 19:40) Urine Culture (04/16/17 19:39) Azithromycin Powd Pack (Zithromax Powd P (04/16/17 20:30) Lidocaine 1% Inj (50 Ml) (Xylocaine 1% I (04/16/17 20:30) Ceftriaxone Inj (Rocephin Inj) (04/16/17 20:30) Us Pelvis Comp W Dop Transvag (04/16/17 19:50) Labs Laboratory Tests Test 04/16/17 19:39 04/16/17 19:50 Urine Color YELLOW Urine Turbidity SLIGHT Urine pH 6.0 Urine Specific Pearson 1.026 Urine Protein NEG mg/dL Urine Glucose (UA) NEG mg/dL Urine Ketones NEG mg/dL Urine Occult Blood NEG Urine Nitrite NEG Urine Bilirubin NEG Urine Leukocyte Esterase NEG Urine WBC 0-2 /hpf Urine Squamous Epithelial Cells 0-5 /hpf Urine Bacteria MOD /hpf Urine Mucus FEW /lpf Microscopic Urinalysis Comment CULTURE INDICATED Clue Cells (Wet Prep) NONE SEEN Vaginal Trichomonas (Wet Prep) NONE SEEN Vaginal Yeast (Wet Prep) NONE SEEN MDM Medical Decision Making Medical Screen Exam Complete: Yes Emergency Medical Condition: Yes Medical Record Reviewed: Yes Interpretation(s) Vital Signs Date Time Temp Pulse Resp B/P (MAP) Pulse Ox O2 Delivery O2 Flow Rate FiO2 04/16/17 19:13 98.8 84 18 146/84 (104) 98 Differential Diagnosis Cervicitis, vaginitis, ovarian cyst, ovarian torsion Narrative Course 42-year-old female who presents to emergency room with complaints of right- sided pelvic pain as well as vaginal discharge which has been ongoing for the past week. Patient reports that pelvic pain has been intermittent in nature, reports that she does have a right-sided ovarian cyst which is 7 cm in size. Currently, patient has no pelvic pain. A pelvic ultrasound was ordered to evaluate for size ovarian cysts and to look for blood flow. Given the size of her ovarian cyst as she reports, there is concern for possible intermittent ovarian torsion. Discussed with her that if she is recurrent pain, she must return to the emergency room immediately for evaluation of possible torsion. Patient also understands that she should follow-up with a ice cream mixer for further workup and possible resection of this ovarian cyst During the course of the patients emergency department visit, the patients history, examination, and differential diagnosis were reviewed with the patient. The patient was placed on a vehicle monitor technician with oximetry and frequent blood pressure monitoring. The patient was initially provided Rocephin as well as azithromycin for treatment of cervicitis. Patient request to be treated at this time, she will follow up with all cultures as she understands that if cultures are positive, all sexual partners will need to be treated. The patients laboratory studies were reviewed and remarkable for: Laboratory Tests Test 04/16/17 19:39 04/16/17 19:50 Urine Color YELLOW (YELLW/STRAW) Urine Turbidity SLIGHT (CLEAR) Urine pH 6.0 (5.0-8.5) Urine Specific Pearson 1.026 (1.002-1.035) Urine Protein NEG mg/dL (NEG-TRACE) Urine Glucose (UA) NEG mg/dL (NEG) Urine Ketones NEG mg/dL (NEG) Urine Occult Blood NEG (NEG) Urine Nitrite NEG (NEG) Urine Bilirubin NEG (NEG) Urine Leukocyte Esterase NEG (NEG) Urine WBC 0-2 /hpf (0-5) Urine Squamous Epithelial Cells 0-5 /hpf (0-5) Urine Bacteria MOD /hpf (NONE) Urine Mucus FEW /lpf (OCC) Microscopic Urinalysis Comment CULTURE INDICATED Clue Cells (Wet Prep) NONE SEEN (NONE) Vaginal Trichomonas (Wet Prep) NONE SEEN (NONE) Vaginal Yeast (Wet Prep) NONE SEEN (NONE) Radiology studies were reviewed and remarkable for: Last Impressions Abdomen/Pelvis/Transvag US 04/16/17 1950 Signed Impressions: Service Date/Time: Saturday, April 17, 2017 01:32 - CONCLUSION: 1. Positive blood flow to both ovaries without evidence for torsion. 2. Complex, possibly hemorrhagic 6.6 cm cyst left ovary. 3. Endometrium thickened to 17 mm. Mario Rees MD Patient with good blood flow to both ovaries with no evidence of torsion. Patient with right sided pelvic pain, on, PATIENT HAS A 6.6 CM LEFT OVARIAN CYSTS WHICH IS POSSIBLY HEMORRHAGIC. PATIENT IS COMFORTABLE AT THIS TIME, PATIENT WITH NO COMPLAINTS. Abdomen is soft, nt/nd, no peritoneal signs. Patient has been treated for cervicitis. Will have her follow up with all cultures from today. She will return to ER as needed Diagnosis Primary Impression: Cervicitis Additional Impressions: Yeast vaginitis Ovarian cyst Patient Instructions: General Instructions Additional Instructions: Please provide patient with a copy of their lab work and studies at discharge* * Please follow up with your primary care doctor in 2-3 days Return to the ER if symptoms worsen or progress Return to the ER as needed Please follow-up with a ice cream mixer as soon as possible Please follow-up with all cultures from today, if cultures are positive, all sexual partners will need to be treated. Med/Other Pt SpecificInfo: Prescription(s) given Scripts Fluconazole (Diflucan) 150 Mg Tab 150 MG PO ONCE for Infection, #1 TAB 0 Refills Prov: Mely Romo DO 04/16/17 Disposition: 01 DISCHARGE HOME Condition: Stable Mely Romo DO Apr 16, 2017 20:06
[2017-04-16] MEDS ORDERED: AZITHROMYCIN PWD FOR SUSP 1 GM PACKET PO ONE (20:30)
[2017-04-16] MEDS ORDERED: LIDOCAINE HCL 1% 50 ML VIAL IM ONE (20:30)
--- NOTE | 2017-04-16 21:01 | RADRPT ---
EXAM DATE/TIME: 04/17/2017 01:32 [facility] COMPARISON: No previous studies available for comparison. INDICATIONS : Pelvic pain, vaginal discharge, ovarian cyst. Evaluate for torsion. MEDICAL HISTORY : Thyroid disease. Mass near heart. Dyspnea. Ovarian cysts. Ectopic . Alcohol use. Anemia. SURGICAL HISTORY : Tubal ligation. ENCOUNTER: Initial ACUITY: 1 week PAIN SCORE: 6/10 LOCATION: Bilateral pelvis MEASUREMENTS: UTERUS: 10.9 x 6.8 x 5.5 cm ENDOMETRIAL STRIPE: 17 mm RIGHT OVARY: 4.2 x 3.2 x 1.8 cm LEFT OVARY: 7.2 x 7.9 x 6.8 cm FINDINGS: Endometrium thickened to 17 mm. Remainder of uterus unremarkable. There is a large cyst in the left ovary measuring up to 6.6 cm in diameter with internal echoes, poss ibly a hemorrhagic cyst. Positive blood flow to both ovaries. Right ovary unremarkable except for sma ll 1.5 cm cyst. Trace free fluid in the cul-de-sac. CONCLUSION: 1. Positive blood flow to both ovaries without evidence for torsion. 2. Complex, possibly hemorrhagic 6.6 cm cyst left ovary. 3. Endometrium thickened to 17 mm. Mario Rees MD on April 16, 2017 at 20:55 Board Certified Radiologist. This report was verified electronically.
[2017-04-16] MEDS ORDERED: DIFL150T PO (21:31)
[2017-04-16 21:39] VITALS: BP 145/82; TEMP 98.5
[2017-04-17 00:39] LABS: CHLAMYDIA PCR NOT DETECTED (NOT DETECT); NEISSERIA PCR NOT DETECTED (NOT DETECT)
== END 2017-04-16 21:45 | disposition home or self-care (01) ==
LOC: PHED 19:00
DX: N72 Inflammatory disease of cervix uteri (principal); B37.3 Candidiasis of vulva and vagina; N83.202 Unspecified ovarian cyst, left side; R82.99 Other abnormal findings in urine; Z79.899 Other long term (current) drug therapy
CPT/HCPCS: 76830; 76856; 81001; 84703; 87086; 87210; 87491; 87591; 93975; 96372; 99285; J0696

== ENCOUNTER 2017-05-27 20:01 | Observation (INO) | payer MEDICAID ==
[2017-05-27] VITALS (10 sets, daily range): BP systolic 115–127; BP diastolic 68–90; PULSE 72–89; RESP 14–18; TEMP 97.4; O2SAT 95–99
[~2017-05-27] VITALS: Ht 157.5 cm; Wt 106.2 kg
[~2017-05-27 20:01] MED LIST changes: +DIFL150T PO
[2017-05-27] MEDS ORDERED: IBUP1TAB7 PO (20:14)
[2017-05-27] MEDS ORDERED: MECLIZINE HCL 25 MG TAB PO ONE (20:15)
[2017-05-27] MEDS ORDERED: ASPIRIN 81 MG CHEW TAB PO ONE (20:15)
[2017-05-27] MEDS ORDERED: SODIUM CHLORIDE 0.9% FLUSH 10 ML FLUSH IVF PRN (20:15)
--- NOTE | 2017-05-27 20:21 | PD ---
HPI Chief Complaint: Chest Pain Time Seen by Provider: 20:06 Travel History International Travel<30 days: No Contact w/Intl Traveler<30days: No Traveled to known affect area: No History of Present Illness HPI Patient is a 42 year old female who comes in complaining of chest pain. She says that the pain started last night and has been coming and going since then. She says the pain is in the middle of her chest and radiates to her back. She took some Ibuprofen, but this did not help. She says it hurts to take a deep breath. She denies nausea or vomiting. 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 She also reports feeling lightheaded, which is worse with standing and moving around. She says she had pain like this once before, but she does not remember what they told her. 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) Diabetes: No Diminished Hearing: No Endocrine: No Gastrointestinal Disorders: No Genitourinary: No Hepatitis: No Hiatal Hernia: No Hypertension: No Immune Disorder: Yes (possible fibromyalgia) Musculoskeletal: Yes (mid back pain) Neurologic: No Psychiatric: No Reproductive: Yes (OVARIAN CYST) Respiratory: Yes Immunizations Current: Yes Thyroid Disease: Yes : 4 Para: 3 Miscarriage: 1 : 0 Ectopic : Yes (1996) Ovarian Cysts: Yes Tubal Ligation: Yes Past Surgical History AICD: No Gynecologic Surgery: Yes (tubaligation) Joint Replacement: No Pacemaker: No Other Surgery: Yes Social History Alcohol Use: Yes (RARELY) Tobacco Use: No Substance Use: No Allergies-Medications (Allergen,Severity, Reaction): Coded Allergies: No Known Allergies (Verified Allergy, Unknown, 05/27/17) Reported Meds & Prescriptions Reported Meds & Active Scripts Active Fioricet (Loijzryfgv-Rddindqiikjcj-Rdqeymnl) 50-300-40 Mg Cap 1-2 Cap PO Q6H PRN Reported Ibuprofen 800 Mg Tab 800 Mg PO Q6HR PRN Methimazole 10 Mg Tab 15 Mg PO DAILY Review of Systems Except as stated in HPI: all other systems reviewed are Neg General / Constitutional: No: Fever, Chills HENT: Positive: Lightheadedness, No: Headaches Cardiovascular: Positive: Chest Pain or Discomfort Respiratory: No: Shortness of Breath Gastrointestinal: No: Nausea, Vomiting Musculoskeletal: No: Myalgias, Edema Skin: No Rash, No Change in Pigmentation Neurologic: No: Weakness, Dizziness Physical Exam Narrative GENERAL: Awake and alert, in no acute distress. SKIN: Focused skin assessment warm/dry. HEAD: Atraumatic. Normocephalic. EYES: Pupils equal and round. No scleral icterus. EOMI. ENT: Mucous membranes pink and moist. NECK: Trachea midline. No JVD. CARDIOVASCULAR: Regular rate and rhythm. No murmur appreciated. RESPIRATORY: No accessory muscle use. Clear to auscultation. Breath sounds equal bilaterally. GASTROINTESTINAL: Abdomen soft, non-tender, nondistended. MUSCULOSKELETAL: No obvious deformities. No clubbing. No cyanosis. No edema. NEUROLOGICAL: Awake and alert. No obvious cranial nerve deficits. Motor grossly within normal limits. Normal speech. PSYCHIATRIC: Appropriate mood and affect; insight and judgment normal. Data Data Last Documented VS Vital Signs Date Time Temp Pulse Resp B/P (MAP) Pulse Ox O2 Delivery O2 Flow Rate FiO2 05/27/17 20:20 88 14 119/78 (92) 98 Room Air 119/77 (91) 05/27/17 20:10 97.4 Orders Orders Complete Blood Count With Diff (05/27/17 20:12) Comprehensive Metabolic Panel (05/27/17 20:12) Prothrombin Time / Inr (Pt) (05/27/17 20:12) Act Partial Throm Time (Ptt) (05/27/17 20:12) Troponin I (05/27/17 20:12) Lipase (05/27/17 20:12) Chest, Single Ap (05/27/17 20:12) Ecg Monitoring (05/27/17 20:12) Bilateral Bp Monitoring (05/27/17 20:12) Iv Access Insert/Monitor (05/27/17 20:12) Oximetry (05/27/17 20:12) Oxygen Administration (05/27/17 20:12) Aspirin Chew (Aspirin Chew) (05/27/17 20:15) Sodium Chloride 0.9% Flush (Ns Flush) (05/27/17 20:15) Meclizine (Antivert) (05/27/17 20:15) Electrocardiogram (05/27/17 20:05) Morphine Inj (Morphine Inj) (05/27/17 21:45) Admit Order (Ed Use Only) (05/27/17 ) Labs Laboratory Tests Test 05/27/17 20:10 White Blood Count 7.3 TH/MM3 Red Blood Count 4.28 MIL/MM3 Hemoglobin 10.9 GM/DL Hematocrit 35.4 % Mean Corpuscular Volume 82.6 FL Mean Corpuscular Hemoglobin 25.5 PG Mean Corpuscular Hemoglobin Concent 30.8 % Red Cell Distribution Width 15.9 % Platelet Count 355 TH/MM3 Mean Platelet Volume 9.6 FL Neutrophils (%) (Auto) 38.6 % Lymphocytes (%) (Auto) 48.4 % Monocytes (%) (Auto) 7.0 % Eosinophils (%) (Auto) 5.1 % Basophils (%) (Auto) 0.9 % Neutrophils # (Auto) 2.8 TH/MM3 Lymphocytes # (Auto) 3.5 TH/MM3 Monocytes # (Auto) 0.5 TH/MM3 Eosinophils # (Auto) 0.4 TH/MM3 Basophils # (Auto) 0.1 TH/MM3 CBC Comment AUTO DIFF Differential Comment AUTO DIFF CONFIRMED Platelet Estimate NORMAL Platelet Morphology Comment NORMAL Red Cell Morphology Comment NORMAL Prothrombin Time 11.5 SEC Prothromb Time International Ratio 1.1 RATIO Activated Partial Thromboplast Time 29.3 SEC Blood Urea Nitrogen 12 MG/DL Creatinine 0.61 MG/DL Random Glucose 83 MG/DL Total Protein 7.8 GM/DL Albumin 3.4 GM/DL Calcium Level 8.6 MG/DL Alkaline Phosphatase 111 U/L Aspartate Amino Transf (AST/SGOT) 14 U/L Alanine Aminotransferase (ALT/SGPT) 17 U/L Total Bilirubin 0.6 MG/DL Sodium Level 139 MEQ/L Potassium Level 3.6 MEQ/L Chloride Level 106 MEQ/L Carbon Dioxide Level 26.5 MEQ/L Anion Gap 7 MEQ/L Estimat Glomerular Filtration Rate 131 ML/MIN Troponin I LESS THAN 0.02 NG/ML Lipase 79 U/L MDM Medical Decision Making Medical Screen Exam Complete: Yes Emergency Medical Condition: Yes Medical Record Reviewed: Yes Interpretation(s) ECG shows NSR at 95, no ST elevation or depression, normal intervals Differential Diagnosis ACS vs NSTEMI vs pneumonia vs costochondritis vs pancreatitis. Narrative Course Patient is a 42-year-old female comes in complaining of chest pain that radiates through to her back. Exam shows no acute abnormalities. IV established, labs sent. Patient connected to the satellite project site monitor. Labs show no acute abnormalities. Troponin is negative. Chest x-ray shows no acute abnormalities. Patient given aspirin and morphine for pain. She'll be placed in the chest pain center for further management. Diagnosis Primary Impression: Chest pain Qualified Codes: R07.9 - Chest pain, unspecified Admitting Information Admitting Physician Requests: Observation Sharon Ramsey MD May 27, 2017 20:21
--- NOTE | 2017-05-27 20:28 | RADRPT ---
EXAM DATE/TIME: 05/27/2017 20:19 [facility] COMPARISON: CHEST SINGLE AP, October 30, 2016, 8:54. INDICATIONS : Chest pain. MEDICAL HISTORY : None. SURGICAL HISTORY : None. ENCOUNTER: Initial ACUITY: 2 days PAIN SCORE: 4/10 LOCATION: chest substernal. FINDINGS: A single view of the chest demonstrates the lungs to be symmetrically aerated without evidence of mas s, infiltrate or effusion. The cardiomediastinal contours are unremarkable. Osseous structures are intact. CONCLUSION: Normal examination. Reginaldo Fregoso MD on May 27, 2017 at 20:25 Board Certified Radiologist. This report was verified electronically.
[2017-05-27 20:40] LABS: AUTOMATED NEUTROPHIL # 2.8 TH/MM3 (1.8-7.7); BASOPHIL # 0.1 TH/MM3 (0-0.2); BASOPHIL % 0.9 % (0.0-2.0); EOSINOPHIL # 0.4 TH/MM3 (0-0.4); EOSINOPHIL % 5.1 % (0.0-4.0); HEMATOCRIT 35.4 % (35.0-46.0); HEMOGLOBIN 10.9 GM/DL (11.6-15.3); LYMPH % 48.4 % (9.0-44.0); LYMPHOCYTE # 3.5 TH/MM3 (1.0-4.8); MEAN CELL VOLUME 82.6 FL (80.0-100.0); MEAN CORPUSCULAR HEMOGLOBIN 25.5 PG (27.0-34.0); MEAN CORPUSCULAR HGB CONC 30.8 % (32.0-36.0); MEAN PLATELET VOLUME 9.6 FL (7.0-11.0); MONOCYTE # 0.5 TH/MM3 (0-0.9); NEUT % 38.6 % (16.0-70.0); PLATELET COUNT 355 TH/MM3 (150-450); RED BLOOD COUNT 4.28 MIL/MM3 (4.00-5.30); RED CELL DISTRIBUTION WIDTH 15.9 % (11.6-17.2); WHITE BLOOD COUNT 7.3 TH/MM3 (4.0-11.0)
[2017-05-27 20:46] LABS: CHLORIDE 106 MEQ/L (98-107); SODIUM (NA) 139 MEQ/L (136-145)
[2017-05-27 20:49] LABS: CALCIUM 8.6 MG/DL (8.5-10.1)
[2017-05-27 20:50] LABS: ALBUMIN 3.4 GM/DL (3.4-5.0); BICARBONATE 26.5 MEQ/L (21.0-32.0); BLOOD UREA NITROGEN 12 MG/DL (7-18); GLUCOSE,RANDOM 83 MG/DL (74-106); LIPASE 79 U/L (73-393)
[2017-05-27 20:52] LABS: ALT (GPT) 17 U/L (10-53)
[2017-05-27 20:53] LABS: AST (GOT) 14 U/L (15-37); CREATININE 0.61 MG/DL (0.50-1.00); GLOMERULAR FILTRATION RATE 131 ML/MIN (>89)
[2017-05-27 20:54] LABS: TOTAL BILIRUBIN ADULT 0.6 MG/DL (0.2-1.0); TOTAL PROTEIN 7.8 GM/DL (6.4-8.2)
[2017-05-27 20:55] LABS: ALKALINE PHOSPHATASE 111 U/L (45-117)
[2017-05-27 20:57] LABS: TROPONIN I LESS THAN 0.02 NG/ML (0.02-0.05)
[2017-05-27 20:58] LABS: INTERNATIONAL NORMALIZED RATIO 1.1 RATIO; PROTHROMBIN TIME - PATIENT 11.5 SEC (9.8-11.6)
[2017-05-27] MEDS ORDERED: MORPHINE SULFATE 2 MG/ML INJ IV PUSH ONE (21:45)
[2017-05-27] MEDS ORDERED: SODIUM CHLORIDE 0.9% FLUSH 10 ML FLUSH IV FLUSH PRN (22:00)
[2017-05-28] VITALS: BP 137/88; PULSE 80; RESP 20; TEMP 97; O2SAT 98
[2017-05-28 00:25] LABS: TROPONIN I LESS THAN 0.02 NG/ML (0.02-0.05)
[2017-05-28] MEDS ORDERED: MORPHINE SULFATE 2 MG/ML INJ IV PUSH PRN (01:45)
[2017-05-28 02:45] LABS: TROPONIN I LESS THAN 0.02 NG/ML (0.02-0.05)
[2017-05-28 04:00] VITALS: BP 116/68; PULSE 81; RESP 20; TEMP 96.4; O2SAT 98
[2017-05-28 07:48] VITALS: PULSE 75; O2SAT 97
[2017-05-28 08:00] VITALS: BP 119/80; PULSE 79; RESP 18; TEMP 97.3; O2SAT 99
[2017-05-28] MEDS: NITROGLYCERIN 2% OINT 1 GM PACKET TOPICAL SCH ×2 (08:02→13:25)
[2017-05-28] MEDS ORDERED: SODIUM CHLORIDE 0.9% FLUSH 10 ML FLUSH IV FLUSH SCH (09:00)
--- NOTE | 2017-05-28 09:47 | HHI.HP ---
[facility] Primary Care Physician No Primary Care Physician Admission Diagnosis Chest Pain Diagnoses: (1) Chest pain Diagnosis: Principal Chief Complaint: Chest pain Travel History International Travel<30 Days: No Contact w/Intl Traveler <30 Da: No Traveled to Known Affected Are: No History of Present Illness This is a pleasant 42-year-old female patient with a known medical history of thyroid disease, fibromyalgia and anemia who presented EKG with complaints of chest pain. Patient states that this chest pain started last evening while at rest she says that the pain is located in the middle of her chest radiates to her back, rated a seven out of ten on pain scale, is aching and pressure-like in nature denies any associated nausea, vomiting, diaphoresis. Does admit to associated shortness of breath and worsening with deep breathing. Denies any alleviating factors. States she did take one dose of ibuprofen without relief. Patient does state that this pain has been ongoing for the past two months, and unable to indicate an underlying cause. Denies any recent illness including fever, chills, cough, shortness of breath, abdominal pain, nausea, vomiting, diarrhea or dysuria. Patient does state that she has a known mass in her chest wall, imaging reviewed from last year in January, showing a nonspecific mass in the anterior mediastinum. At that time it was found to be homogenous and does not appear to cause compression of the vascular structures, with abut to the aorta in the left innominate vein. A PET scan was recommended , patient denies ever receiving follow-up. At the time of assessment, patient states that the chest pain has continued but it is more mild after the morphine and Nitropaste, rates it as a five out of ten on pain scale. There is noticeable reproducible chest pain to palpation. Will order CT chest with contrast for further investigation. 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 Past Surgical History Tubal ligation Reported Medications Active Fioricet (Nciszwzood-Opkqkoiybjmwb-Fxcdomzb) 50-300-40 Mg Cap 1-2 Cap PO Q6H PRN Reported Ibuprofen 800 Mg Tab 800 Mg PO Q6HR PRN Methimazole 10 Mg Tab 15 Mg PO DAILY Allergies: Coded Allergies: No Known Allergies (Verified Allergy, Unknown, 05/27/17) Active Ordered Medications Current Medications Medications (Trade) Dose Ordered Sig/Bg Route Start Time Stop Time Status Last Admin (NS Flush) 2 ml UNSCH PRN IV FLUSH 05/27/17 22:00 05/28/17 02:13 (NS Flush) 2 ml BID IV FLUSH 05/28/17 09:00 05/28/17 08:02 (Morphine Inj) 2 mg Q3H PRN IV PUSH 05/28/17 01:45 05/28/17 02:13 (Nitroglycerin 2% Oint) 0.5 inch Q6HR TOPICAL 05/28/17 08:00 05/28/17 08:02 Family History Maternal medical history significant for diabetes. Denies any significant cardiovascular disease and family history. Social History Denies any current or previous tobacco use. Admits to alcohol use occasionally. Denies any illicit drug use. Physical Exam Vital Signs Vital Signs Date Time Temp Pulse Resp B/P (MAP) Pulse Ox O2 Delivery O2 Flow Rate FiO2 05/28/17 07:48 97 21 05/28/17 07:48 75 05/28/17 04:00 96.4 81 20 116/68 (84) 98 05/28/17 03:13 20 05/28/17 00:00 97.0 80 20 137/88 (104) 98 05/27/17 23:20 77 05/27/17 23:12 05/27/17 22:55 99 21 05/27/17 22:40 72 16 116/68 (84) 98 Room Air 05/27/17 22:10 80 16 127/90 (102) 97 Room Air 05/27/17 22:00 16 05/27/17 21:40 78 18 115/81 (92) 96 Room Air 05/27/17 21:10 82 16 116/79 (91) 96 Room Air 05/27/17 20:40 88 16 115/83 (94) 95 Room Air 05/27/17 20:20 88 14 119/78 (92) 98 Room Air 119/77 (91) 05/27/17 20:15 98 Room Air 05/27/17 20:15 14 98 Room Air 05/27/17 20:10 97.4 89 14 119/78 (92) 97 05/27/17 20:10 89 14 97 Room Air Physical Exam GENERAL: This is a well-nourished, obese female patient, lying in bed in no apparent distress. SKIN: No rashes, ecchymoses or lesions. Warm and dry. HEAD: Atraumatic. Normocephalic. EYES: Pupils equal round and reactive. Extraocular motions intact. No scleral icterus. No injection or drainage. ENT: Nose without bleeding, purulent drainage or septal hematoma. Throat without erythema, tonsillar hypertrophy or exudate. Uvula midline. Airway patent. NECK: Trachea midline. No JVD or lymphadenopathy. Supple, nontender, no meningeal signs. CARDIOVASCULAR: Regular rate and rhythm without murmurs, gallops, or rubs. Reproducible chest discomfort to palpation. RESPIRATORY: Clear to auscultation. Breath sounds equal bilaterally. No wheezes , rales, or rhonchi. GASTROINTESTINAL: Abdomen soft, non-tender, nondistended. No guarding. MUSCULOSKELETAL: Extremities without clubbing, cyanosis, or edema. No joint tenderness, effusion, or edema noted. NEUROLOGICAL: Awake and alert. Cranial nerves II through XII intact. Motor and sensory grossly within normal limits. Five out of 5 muscle strength in all muscle groups. Normal speech. Laboratory Laboratory Tests Test 05/27/17 20:10 05/27/17 23:10 05/28/17 02:20 White Blood Count 7.3 Red Blood Count 4.28 Hemoglobin 10.9 Hematocrit 35.4 Mean Corpuscular Volume 82.6 Mean Corpuscular Hemoglobin 25.5 Mean Corpuscular Hemoglobin Concent 30.8 Red Cell Distribution Width 15.9 Platelet Count 355 Mean Platelet Volume 9.6 Neutrophils (%) (Auto) 38.6 Lymphocytes (%) (Auto) 48.4 Monocytes (%) (Auto) 7.0 Eosinophils (%) (Auto) 5.1 Basophils (%) (Auto) 0.9 Neutrophils # (Auto) 2.8 Lymphocytes # (Auto) 3.5 Monocytes # (Auto) 0.5 Eosinophils # (Auto) 0.4 Basophils # (Auto) 0.1 CBC Comment AUTO DIFF Differential Comment AUTO DIFF CONFIRMED Platelet Estimate NORMAL Platelet Morphology Comment NORMAL Red Cell Morphology Comment NORMAL Prothrombin Time 11.5 Prothromb Time International Ratio 1.1 Activated Partial Thromboplast Time 29.3 Blood Urea Nitrogen 12 Creatinine 0.61 Random Glucose 83 Total Protein 7.8 Albumin 3.4 Calcium Level 8.6 Alkaline Phosphatase 111 Aspartate Amino Transf (AST/SGOT) 14 Alanine Aminotransferase (ALT/SGPT) 17 Total Bilirubin 0.6 Sodium Level 139 Potassium Level 3.6 Chloride Level 106 Carbon Dioxide Level 26.5 Anion Gap 7 Estimat Glomerular Filtration Rate 131 Troponin I LESS THAN 0.02 LESS THAN 0.02 LESS THAN 0.02 Lipase 79 Total Creatine Kinase 157 125 Creatine Kinase MB 1.2 1.2 Result Diagram: 05/27/17200905/27/172009 Imaging Last Impressions Chest X-Ray 05/27/172011 Signed Impressions: Service Date/Time: Saturday, May 27, 2017 20:19 - CONCLUSION: Normal examination. Reginaldo Fregoso MD Septic Shock Reassessment Septic shock perfusion: reassessment completed Caprini VTE Risk Assessment Caprini VTE Risk Assessment: No/Low Risk (score <= 1) Caprini Risk Assessment Model Point Value = 1 Point Value = 2 Point Value = 3 Point Value = 5 Age 41-60 Minor surgery BMI > 25 kg/m2 Swollen legs Varicose veins or History of unexplained or recurrent spontaneous Oral contraceptives or hormone replacement Sepsis (< 1 month) Serious lung disease, including pneumonia (< 1 month) Abnormal pulmonary function Acute myocardial infarction Congestive heart failure (< 1 month) History of inflammatory bowel disease Medical patient at bed rest Age 61-74 Arthroscopic surgery Major open surgery (> 45 min) Laparoscopic surgery (> 45 min) Malignancy Confined to bed (> 72 hours) Immobilizing plaster cast Central venous access Age >= 75 History of VTE Family history of VTE Factor V Leiden Prothrombin 12690A Lupus anticoagulant Anticardiolipin antibodies Elevated serum homocysteine Heparin-induced thrombocytopenia Other congenital or acquired thrombophilia Stroke (< 1 month) Elective arthroplasty Hip, pelvis, or leg fracture Acute spinal cord injury (< 1 month) Prophylaxis Regimen Total Risk Factor Score Risk Level Prophylaxis Regimen 0-1 Low Early ambulation 2 Moderate Order ONE of the following: *Sequential Compression Device (SCD) *Heparin 5000 units SQ BID 3-4 Higher Order ONE of the following medications: *Heparin 5000 units SQ TID *Enoxaparin/Lovenox 40 mg SQ daily (WT < 150 kg, CrCl > 30 mL/min) *Enoxaparin/Lovenox 30 mg SQ daily (WT < 150 kg, CrCl > 10-29 mL/min) *Enoxaparin/Lovenox 30 mg SQ BID (WT < 150 kg, CrCl > 30 mL/min) AND/OR *Sequential Compression Device (SCD) 5 or more Highest Order ONE of the following medications: *Heparin 5000 units SQ TID (Preferred with Epidurals) *Enoxaparin/Lovenox 40 mg SQ daily (WT < 150 kg, CrCl > 30 mL/min) *Enoxaparin/Lovenox 30 mg SQ daily (WT < 150 kg, CrCl > 10-29 mL/min) *Enoxaparin/Lovenox 30 mg SQ BID (WT < 150 kg, CrCl > 30 mL/min) AND *Sequential Compression Device (SCD) Assessment and Plan Problem List: (1) Chest pain ICD Code: R07.9 - Chest pain, unspecified Status: Acute Plan: Chest pain likely secondary to musculoskeletal in nature. Patient has been admitted to the chest pain center, serial EKGs and serial troponins have been ordered for ruling out ACS purposes. Serial troponins are flat. EKG reviewed showing normal sinus rhythm, heart rate controlled, no ST changes to indicate any presence of ischemia. Aspirin and morphine IV was given in the ER. Control pain, Nitroglycerin available when necessary as needed. Morphine IV available when necessary as needed. Will give one dose of IV Toradol for musculoskeletal complaints. CBC and BMP reviewed, essentially unremarkable. Chest x-ray reviewed, no acute cardiopulmonary disease. Continue cardiac telemetry, monitor for any presence of arrhythmias. Upon minimal O2 as needed, patient lying in bed comfortable on room air. Patient's risk factors minimal. Most likely musculoskeletal in nature, patient states she has been very active picking up her children. Will monitor. (2) Soft tissue mass ICD Code: M79.9 - Soft tissue disorder, unspecified Plan: Soft tissue mass in the anterior mediastinum, chest MRI was performed in January of last year. Recommendations for a PET scan, patient lost to follow- up. Will perform a chest CT with contrast to further investigate mass. Continue to follow. May be due to complaints of chest discomfort. Patient is stable at this time and agreeable to the plan. Assessment and Plan CT Chest performed and reviewed showing a significant interval improvement in previously noted abnormal soft tissue in the anterior mediastinum. Spoke to radiologist who believes that this was a benign growth an considering her age and improvement there is no recommendations for follow. No new masses or adenopathy seen. Patient spoke to at length regarding findings and patient's pain has now relieved. Will discharge with recommendations to follow up with PCP upon discharge and update about CT chest findings. Discussed Condition With I, Romel Perrin, independently evaluated the patient. I examined the patient and she indeed has prominent tenderness to palpation over her chest wall and sternum - and she affirms that this was indeed her pain that she described to the medical staff upon presentation. Problem Qualifiers (1) Chest pain: Qualified Codes: R07.9 - Chest pain, unspecified Sharon Fitch May 28, 2017 09:47 Romel Perrin MD May 28, 2017 17:23
[2017-05-28] MEDS ORDERED: KETOROLAC TROMETHAMINE 30 MG/ML (IVP) VIAL IV PUSH ONE (10:00)
[2017-05-28] MEDS ORDERED: IOHEXOL 350 MG/ML 10 ML VIAL (for RAD DIAG) IVCONTRAST ONE (11:05)
--- NOTE | 2017-05-28 11:43 | RADRPT ---
EXAM DATE/TIME: 05/28/2017 10:57 [facility] COMPARISON: CT PULMONARY ANGIOGRAM, January 20, 2016, 22:24. CHEST SINGLE AP, May 27, 2017, 20:19. INDICATIONS : Mid-sternal chest pain and shortness of breath with deep breathing. History of known mediastinal mass . IV CONTRAST: 65 cc Omnipaque 350 (iohexol) IV RADIATION DOSE: 21.00 CTDIvol (mGy) MEDICAL HISTORY : Hypothyroidism. SURGICAL HISTORY : Tubal ligation. ENCOUNTER: Initial ACUITY: 3 days PAIN SCALE: 7/10 LOCATION: chest TECHNIQUE: Volumetric scanning of the chest was performed. Using automated exposure control and adjustment of t he mA and/or kV according to patient size, radiation dose was kept as low as reasonably achievable to obtain optimal diagnostic quality images. DICOM format image data is available electronically for review and comparison. Follow-up recommendations for detected pulmonary nodules are based at a minimum on nodule size and pa tient risk factors according to Fleischner Society Guidelines. FINDINGS: LUNGS: There is no consolidation or pneumothorax. No concerning pulmonary nodule is visualized. PLEURA: There is no pleural thickening or pleural effusion. MEDIASTINUM: The heart and great vessels demonstrate no acute abnormality. The previously noted abnormal soft tis ruddy in the anterior mediastinum has significantly decreased with only minimal residual now identified . There is no new mediastinal or hilar lymphadenopathy. AXILLAE: Within normal limits. No lymphadenopathy. SKELETAL: Within normal limits for patient age. MISCELLANEOUS: The visualized upper abdominal organs demonstrate no acute abnormality. CONCLUSION: 1. Significant interval improvement in previously noted abnormal soft tissue in the anterior mediasti num. There is only minimal residual. 2. No new mass or adenopathy. The lungs are clear. Rohit Berrios MD on May 28, 2017 at 11:36 Board Certified Radiologist. This report was verified electronically.
[2017-05-28 12:00] VITALS: BP 121/76; PULSE 86; RESP 16; TEMP 96.2; O2SAT 98
--- NOTE | 2017-05-28 13:34 | HHI.DCPOC ---
Discharge Care Plan Diagnosis: (1) Soft tissue mass (2) Atypical chest pain Your Health Problems Are: Anxiety Chest Pain Goals to Promote Your Health * To prevent worsening of your condition and complications * To maintain your health at the optimal level Directions to Meet Your Goals Take your medications as prescribed Follow your dietary instruction Follow activity as directed Keep your appointments as scheduled Take your immunizations and boosters as scheduled If your symptoms worsen call your PCP, if no PCP go to Urgent Care Center or Emergency Room Smoking is Dangerous to Your Health. Avoid second hand smoke Call the 24-hour hour crisis hotline for domestic abuse at Sharon Fitch May 28, 2017 13:34
[2017-05-28] MEDS ORDERED: LIDO1PAD52 TOPICAL (13:56)
[2017-05-28] MEDS ORDERED: NAPR500T2 PO (13:56)
[2017-05-28] MEDS ORDERED: NAPROXEN SODIUM 550 MG TAB PO ONE (15:00)
[2017-05-28] MEDS ORDERED: LIDOCAINE HCL 5% PATCH T-DERMAL ONE (15:00)
--- NOTE | 2017-05-28 17:51 | EKG ---
Date Performed: 05/27/2017 Time Performed: 20:05:42 PTAGE: 42 years EKG: Sinus rhythm NORMAL ECG Since PREVIOUS TRACING , no significant change noted PREVIOUS TRACIN10/30/2016 08.09 DOCTOR: Safia Coffey Interpretating Date/Time 05/28/2017 17:50:36
--- NOTE | 2017-05-28 17:53 | EKG ---
Date Performed: 05/27/2017 Time Performed: 21:44:00 PTAGE: 42 years EKG: Sinus rhythm SEPTAL MYOCARDIAL INFARCTION ABNORMAL ECG Since PREVIOUS TRACING , no significant change noted DOCTOR: Safia Coffey Interpretating Date/Time 05/28/2017 17:52:15
--- NOTE | 2017-05-28 17:55 | EKG ---
Date Performed: 05/28/2017 Time Performed: 02:08:32 PTAGE: 42 years EKG: Sinus rhythm SEPTAL MYOCARDIAL INFARCTION ABNORMAL ECG Since PREVIOUS TRACING , no significant change noted PREVIOUS TRACIN05/27/2017 20.05 DOCTOR: Safia Coffey Interpretating Date/Time 05/28/2017 17:54:18
[2017-05-29] MEDS ORDERED: REMOVE OLD PATCH T-DERMAL ONE (03:00)
== END 2017-05-28 15:00 | disposition home or self-care (01) ==
LOC: PHED 20:01 → PHEDA 21:46 → PH3A 23:27
PROVIDERS: ADMIT Hospitalist; ATTEND Hospitalist
DX: R07.9 Chest pain, unspecified (principal); R42 Dizziness and giddiness; D64.9 Anemia, unspecified; M54.6 Pain in thoracic spine; M79.7 Fibromyalgia; R06.02 Shortness of breath; R22.2 Localized swelling, mass and lump, trunk; E03.9 Hypothyroidism, unspecified; N83.209 Unspecified ovarian cyst, unspecified side; R94.31 Abnormal electrocardiogram [ECG] [EKG]
CPT/HCPCS: 71045; 71260; 80053; 82550; 82552; 83690; 84484; 85025; 85610; 85730; 93005; 96374; 96375; 96376; 99285; G0378; J1885; J2270; Q9967

== ENCOUNTER 2017-05-30 18:16 | Emergency (ER) | payer MEDICAID ==
[~2017-05-30] VITALS: Ht 157.5 cm; Wt 100.0 kg
[~2017-05-30 18:16] MED LIST changes: -DIFL150T PO; +IBUP1TAB7 PO; +LIDO1PAD52 TOPICAL
[2017-05-30 18:35] VITALS: BP 139/82; PULSE 89; RESP 16; TEMP 99.2; O2SAT 98
[2017-05-30 22:00] VITALS: BP 140/72; PULSE 87; RESP 16; TEMP 98.7; O2SAT 99
[2017-05-30] MEDS ORDERED: SODIUM CHLORIDE 0.9% FLUSH 10 ML FLUSH IVF PRN (22:00)
--- NOTE | 2017-05-30 22:04 | PD ---
HPI Chief Complaint: Chest Pain Time Seen by Provider: 21:54 Travel History International Travel<30 days: No Contact w/Intl Traveler<30days: No Traveled to known affect area: No History of Present Illness HPI Patient is a 42-year-old female with history of fibromyalgia presents emergency Department with chest pain in the center of her chest radiating down her right arm elevated with right arm swelling. Patient notably presented on May 27 this facility was observed overnight in the chest pain center seen by cardiology and deemed to be musculoskeletal in nature and highly atypical, she was referred back to her primary care physician. Patient states she went to her primary care physician's today who noted right upper extremity swelling and referred the patient back to the emergency department for workup for chest pain and right upper extremity edema. Patient states that she does have pain radiating down her right arm. Denies history of smoking high blood pressure high cholesterol heart disease lung disease or family history of heart disease. Patient states the pain is severe, severed chest, radiating down her right arm , context as above. PFSH Past Medical History Hx Anticoagulant Therapy: No Anemia: Yes Anxiety: No Depression: No Cancer: No Cardiovascular Problems: Yes (mass near heart) Chest Pain: Yes (06/06 2nd ED visit for CP) Diabetes: No Diminished Hearing: No Endocrine: No Gastrointestinal Disorders: No Genitourinary: No Hepatitis: No Hiatal Hernia: No Hypertension: No Immune Disorder: Yes (possible fibromyalgia) Musculoskeletal: Yes (mid back pain) Neurologic: Yes Psychiatric: No Reproductive: Yes (OVARIAN CYST) Respiratory: Yes Immunizations Current: Yes Migraines: Yes Thyroid Disease: Yes (HYPOTHYROIDISM) : 4 Para: 3 Miscarriage: 1 : 0 Ectopic : Yes (1996) Ovarian Cysts: Yes Tubal Ligation: Yes Past Surgical History AICD: No Gynecologic Surgery: Yes (tubaligation) Joint Replacement: No Pacemaker: No Other Surgery: Yes Social History Alcohol Use: Yes (RARELY) Tobacco Use: No Substance Use: No Allergies-Medications (Allergen,Severity, Reaction): Coded Allergies: No Known Allergies (Verified Allergy, Unknown, 05/30/17) Reported Meds & Prescriptions Reported Meds & Active Scripts Active Naproxen 500 Mg Tab 500 Mg PO BID 30 Days Lidocaine Patch 12 HR (Lidocaine) 5 % Patch 1 Patch TOPICAL DAILY PRN Remove patch after 12 hours Fioricet (Ezemjppisn-Icimfrfdbhegt-Jljhatqu) 50-300-40 Mg Cap 1-2 Cap PO Q6H PRN Reported Ibuprofen 800 Mg Tab 800 Mg PO Q6HR PRN Methimazole 10 Mg Tab 15 Mg PO DAILY Review of Systems Except as stated in HPI: all other systems reviewed are Neg Physical Exam Narrative GENERAL: Well-developed well-nourished, morbidly obese in no obvious distress. SKIN: Focused skin assessment warm/dry. HEAD: Atraumatic. Normocephalic. EYES: Pupils equal and round. No scleral icterus. No injection or drainage. ENT: No nasal bleeding or discharge. Mucous membranes pink and moist. NECK: Trachea midline. No JVD. CARDIOVASCULAR: Regular rate and rhythm. No murmur appreciated. RESPIRATORY: No accessory muscle use. Clear to auscultation. Breath sounds equal bilaterally. GASTROINTESTINAL: Abdomen soft, non-tender, nondistended. Hepatic and splenic margins not palpable. MUSCULOSKELETAL: No obvious deformities. No clubbing. No cyanosis. No edema. I do not appreciate any edema of the patient's right upper extremity. NEUROLOGICAL: Awake and alert. No obvious cranial nerve deficits. Motor grossly within normal limits. Normal speech. PSYCHIATRIC: Appropriate mood and affect; insight and judgment normal. Data Data Last Documented VS Vital Signs Date Time Temp Pulse Resp B/P (MAP) Pulse Ox O2 Delivery O2 Flow Rate FiO2 05/31/17 00:44 84 16 135/78 (97) 99 05/30/17 22:00 98.7 Room Air Orders Orders Electrocardiogram (05/30/17 18:31) Chest, Single Ap (05/30/17 21:59) Sodium Chloride 0.9% Flush (Ns Flush) (05/30/17 22:00) Us Arm Venous Doppler (05/30/17 ) Ketorolac Inj (Toradol Inj) (05/30/17 22:15) Ketorolac Inj (Toradol Inj) (05/30/17 22:45) Oxycodone-Acetamin 5-325 Mg (Percocet (05/31/17 00:15) MDM Medical Decision Making Medical Screen Exam Complete: Yes Emergency Medical Condition: Yes Differential Diagnosis ACS unlikely, AMI unlikely, PE is excludable by wells and PERC criteria, DVT of the right upper extremity, chest wall pain. Narrative Course Patient roomed emerged permit, review the records show that she was just admitted to 3 days ago had stayed overnight in the chest pain observation Center seen and evaluated by cardiology service in stable for outpatient workup. DVT ultrasound negative here. Initially patient had lab work ordered, difficult IV access the patient ultimately declined. At this time the patient' s symptoms are highly atypical, she has been evaluated for chest pain observation Center and deemed stable for outpatient workup. His conveyed this to her discharge paperwork she stable for discharge, discussed that she is still swollen her right upper extremity awake she should return for repeat ultrasound. She stable for discharge. Diagnosis Primary Impression: Atypical chest pain Additional Impression: Right arm pain Additional Instructions: You had an ultrasound of your right arm today which showed no blood clot here. You were also admitted to the hospital on 05/27 for chest pain and were seen by a labor/excavator after having labs showing negative troponins multiple times. At this time, having the above workup, you are stable for further workup as an outpatient. Call your regular physician for further instructions tomorrow. Disposition: 01 DISCHARGE HOME Condition: Stable Lorenzo Orellana MD May 30, 2017 22:04
[2017-05-30] MEDS ORDERED: KETOROLAC TROMETHAMINE 30 MG/ML (IVP) VIAL IV PUSH ONE (22:15)
[2017-05-30] MEDS ORDERED: KETOROLAC TROMETHAMINE 60 MG/2 ML (IM) VIAL IM ONE (22:45)
--- NOTE | 2017-05-30 22:50 | RADRPT ---
EXAM DATE/TIME: 05/30/2017 22:05 [facility] COMPARISON: CT THORAX W CONTRAST, May 28, 2017, 10:57. CHEST SINGLE AP, May 27, 2017, 20:19. INDICATIONS : Chest pain since Saturday. MEDICAL HISTORY : Hypothyroidism. SURGICAL HISTORY : Tubal ligation. ENCOUNTER: Initial ACUITY: 4 - 6 days PAIN SCORE: 7/10 LOCATION: Bilateral chest FINDINGS: A single view of the chest demonstrates the lungs to be symmetrically aerated without evidence of mas s, infiltrate or effusion. The cardiomediastinal contours are unremarkable. Osseous structures are intact. CONCLUSION: No acute abnormality demonstrated. Rashid Hylton MD on May 30, 2017 at 22:47 Board Certified Radiologist. This report was verified electronically.
--- NOTE | 2017-05-30 23:45 | RADRPT ---
EXAM DATE/TIME: 05/30/2017 22:50 [facility] COMPARISON: No previous studies available for comparison. INDICATIONS : Thrombosis. Right arm pain and swelling. MEDICAL HISTORY : Hypothyroidism. Mass near heart. Ectopic . SURGICAL HISTORY : Tubal ligation. Left knee surgery. ENCOUNTER: Initial ACUITY: 3 days PAIN SCORE: 7/10 LOCATION: Right arm. FINDINGS: There is spontaneous flow documented in the brachial, basilic, axillary, and subclavian veins. The v essels are compressible and augmentation response is documented. No filling defects are seen. The f low is phasic with respiration. Direction of flow in the jugular vein is caudal. The cephalic vein was not visualized. CONCLUSION: No evidence of DVT. Neal Hale MD on May 30, 2017 at 23:42 Board Certified Radiologist. This report was verified electronically.
[2017-05-31] MEDS ORDERED: oxyCODONE/ACETAMINOPHEN 5 MG/325 MG TAB PO ONE (00:15)
[2017-05-31 00:44] VITALS: BP 135/78
--- NOTE | 2017-05-31 15:59 | EKG ---
Date Performed: 05/30/2017 Time Performed: 18:31:31 PTAGE: 42 years EKG: Sinus rhythm MINIMAL ST DEPRESSION BORDERLINE ECG PREVIOUS TRACING : 05/28/2017 02.08 Since previous tracing, no significant change noted DOCTOR: Silviano Cannon Interpretating Date/Time 05/31/2017 15:58:41
== END 2017-05-31 00:47 | disposition home or self-care (01) ==
LOC: PHED 18:16
DX: R07.89 Other chest pain (principal); M79.601 Pain in right arm
CPT/HCPCS: 71045; 93005; 93971; 96372; 99285; J1885

== ENCOUNTER 2017-09-11 18:22 | Emergency (ER) | payer SELFPAY ==
[~2017-09-11] VITALS: Ht 157.5 cm; Wt 107.0 kg
[2017-09-11 18:37] VITALS: BP 133/75; PULSE 88; RESP 17; TEMP 98.2; O2SAT 100
[2017-09-11] MEDS ORDERED: METH5TAB4 PO (19:00)
--- NOTE | 2017-09-11 19:24 | PD ---
HPI Chief Complaint: Musculoskeletal Complaint Time Seen by Provider: 18:58 Travel History International Travel<30 days: No Contact w/Intl Traveler<30days: No Traveled to known affect area: No History of Present Illness HPI This is a 42-year-old female here with multiple complaints. Her first complaint is left knee pain after she twisted the knee and now has pain with weightbearing and flexion. She reports pain is constant, throbbing localized to the anterior aspect of the knee. No swelling of the lower extremity. she is also complaining of "bumps" on her tongue. She denies fever chills. No sore throat. No difficulty swallowing or change in voice. PFSH Past Medical History Anemia: Yes Cancer: No Immune Disorder: Yes (possible fibromyalgia) Neurologic: Yes Psychiatric: No Reproductive: Yes (OVARIAN CYST) Immunizations Current: Yes Migraines: Yes Thyroid Disease: Yes (HYPOTHYROIDISM) Tetanus Vaccination: > 5 Years Influenza Vaccination: No ?: Not LMP: 09/07/2017 : 4 Para: 3 Miscarriage: 1 : 0 Ectopic : Yes (1996) Ovarian Cysts: Yes Tubal Ligation: Yes Past Surgical History AICD: No Gynecologic Surgery: Yes (tubaligation) Joint Replacement: No Pacemaker: No Other Surgery: Yes Social History Alcohol Use: Yes (Occ.) Tobacco Use: No Substance Use: No Allergies-Medications (Allergen,Severity, Reaction): Coded Allergies: No Known Allergies (Verified Allergy, Unknown, 09/11/17) Reported Meds & Prescriptions Reported Meds & Active Scripts Active Naproxen 500 Mg Tab 500 Mg PO BID 30 Days Reported Methimazole 5 Mg Tab 5 Mg PO BID Ibuprofen 800 Mg Tab 800 Mg PO Q6HR PRN Review of Systems Except as stated in HPI: all other systems reviewed are Neg General / Constitutional: No: Fever Eyes: No: Visual changes HENT: No: Headaches Cardiovascular: No: Chest Pain or Discomfort Respiratory: No: Shortness of Breath Gastrointestinal: No: Abdominal Pain Genitourinary: No: Dysuria Physical Exam Narrative GENERAL: Alert and well-appearing 42-year-old female. Resting comfortably on stretcher SKIN: Warm and dry. HEAD: Normocephalic. EYES: No scleral icterus. No injection or drainage. ENT: Tongue with slightly enlarged normal-appearing papillae. No oral ulcers. no pharyngeal erythema. No tonsillar hypertrophy or exudate. Uvula is midline. Airways patent. NECK: Supple CARDIOVASCULAR: Regular rate and rhythm without murmurs, gallops, or rubs. RESPIRATORY: Breath sounds equal bilaterally. No accessory muscle use. GASTROINTESTINAL: Abdomen soft, non-tender, nondistended. MUSCULOSKELETAL: No cyanosis, or edema. LLE: +TTP anterior/medial aspect of the knee. Pain is reproduced with flexion. No laxity. No posterior knee pain. No calf tenderness. No edema appreciated. 2+ distal pulses. Normal sensation. Brisk cap refill. Data Data Last Documented VS Vital Signs Date Time Temp Pulse Resp B/P (MAP) Pulse Ox O2 Delivery O2 Flow Rate FiO2 09/11/17 18:37 98.2 88 17 133/75 (94) 100 Orders Orders Knee, Complete (4vws) (09/11/17 ) [facility] Medical Decision Making Medical Screen Exam Complete: Yes Emergency Medical Condition: Yes Differential Diagnosis Knee pain: Sprain/strain versus meniscal injury versus medial collateral ligament injury versus fracture versus DVT unlikely Narrative Course 42-year-old female here with left anterior knee pain after twisting injury. X- ray is negative for fracture. She will be treated for knee sprain. She was instructed to follow-up with her primary doctor. Return if she has new or worsening symptoms. Diagnosis Primary Impression: Knee sprain Qualified Codes: S83.92XA - Sprain of unspecified site of left knee, initial encounter Referrals: Primary Care Physician Departure Forms: Tests/Procedures, Work Release Enter return to work date: Sep 14, 2017 Additional Instructions: Baldev wrap for support. Follow-up with your primary doctor. Medication as needed for pain Scripts Meloxicam (Meloxicam) 15 Mg Tab 15 MG PO DAILY for Arthritis Pain, #30 TAB 0 Refills Prov: Albertina Purcell 09/11/17 Disposition: 01 DISCHARGE HOME Condition: Stable Albertina Purcell Sep 11, 2017 19:24
[2017-09-11] MEDS ORDERED: MELO15TA20 PO (20:21)
--- NOTE | 2017-09-11 20:22 | RADRPT ---
EXAM DATE/TIME: 09/11/2017 19:42 [facility] COMPARISON: No previous studies available for comparison. INDICATIONS : Left knee pain from unknown injury. MEDICAL HISTORY : Hypothyroidism. SURGICAL HISTORY : Tubal ligation. ENCOUNTER: Initial ACUITY: 1 day PAIN SCORE: 4/10 LOCATION: Left knee. FINDINGS: No fracture or subluxation demonstrated of the left knee. No significant joint effusion demonstrated. There is mild tricompartment osteoarthritis. Moderate osteoarthritis seen in the proximal tib-fib sonya int. CONCLUSION: Mild to moderate degenerative changes. No fracture or subluxation of the left knee. Rashid Hylton MD on September 11, 2017 at 20:19 Board Certified Radiologist. This report was verified electronically.
[2017-09-11] MEDS ORDERED: KETOROLAC TROMETHAMINE 60 MG/2 ML (IM) VIAL IM ONE (20:30)
== END 2017-09-11 20:44 | disposition home or self-care (01) ==
LOC: PHEFT 18:22
DX: S83.92XA Sprain of unspecified site of left knee, initial encounter (principal); X50.1XXA Overexertion from prolonged static or awkward postures, initial encounter
CPT/HCPCS: 73564; 96372

== ENCOUNTER 2017-09-18 12:45 | Emergency (ER) | payer MEDICAID ==
[~2017-09-18] VITALS: Ht 157.5 cm; Wt 96.0 kg
[~2017-09-18 12:45] MED LIST changes: -BUTA1CAP PO; -LIDO1PAD52 TOPICAL; +MELO15TA20 PO; +METH5TAB4 PO; -METHI10 PO
[2017-09-18 13:00] VITALS: RESP 16; O2SAT 100
[2017-09-18 13:01] VITALS: BP 131/87; PULSE 80; RESP 16; TEMP 98.4; O2SAT 100
[2017-09-18] MEDS ORDERED: SODIUM CHLORIDE 0.9% FLUSH 10 ML FLUSH IVF PRN (13:30)
[2017-09-18] MEDS ORDERED: RESP: ALBUTEROL 2.5 MG/3 ML NEB (SCH) INH ONE (13:30)
--- NOTE | 2017-09-18 13:33 | RADRPT ---
EXAM DATE/TIME: 09/18/2017 13:19 [facility] COMPARISON: CHEST SINGLE AP, May 30, 2017, 22:05. INDICATIONS : Chest pain. MEDICAL HISTORY : Hypothyroidism. SURGICAL HISTORY : Tubal ligation. ENCOUNTER: Initial ACUITY: 2 days PAIN SCORE: 8/10 LOCATION: Bilateral chest FINDINGS: A single view of the chest demonstrates the lungs to be symmetrically aerated without evidence of mas s, infiltrate or effusion. The cardiomediastinal contours are unremarkable. Osseous structures are intact. CONCLUSION: No acute disease. No significant change has occurred. Neal Hale MD on September 18, 2017 at 13:31 Board Certified Radiologist. This report was verified electronically.
--- NOTE | 2017-09-18 13:42 | PD ---
HPI Chief Complaint: Chest Pain Time Seen by Provider: 13:17 Travel History International Travel<30 days: No Contact w/Intl Traveler<30days: No Traveled to known affect area: No History of Present Illness HPI 42-year-old female complains of chest pain, retrosternal and right low back pain. Associated symptoms include shortness of breath. The chest pain is pleuritic. Duration has been since last night. It started while the patient was at work. Today she reports a near syncope episode at work and had to leave to come to the ER. No cough or fever reported. No history diabetes hypertension tension hyperlipidemia. The patient does not smoke. Patient denies any history of -control/hormone/steroid use. No recent travel. PFSH Past Medical History Anemia: Yes Cancer: No Cardiovascular Problems: Yes (mass near heart) Chest Pain: Yes (06/06 2nd ED visit for CP) Diminished Hearing: No Immune Disorder: Yes (possible fibromyalgia) Musculoskeletal: Yes (mid back pain) Neurologic: Yes Psychiatric: No Reproductive: Yes (OVARIAN CYST) Respiratory: Yes Immunizations Current: Yes (UTD) Migraines: Yes Thyroid Disease: Yes (HYPOTHYROIDISM) ?: Not LMP: 09/09/2017 : 4 Para: 3 Miscarriage: 1 : 0 Ectopic : Yes (1996) Ovarian Cysts: Yes Tubal Ligation: Yes Past Surgical History AICD: No Gynecologic Surgery: Yes (tubaligation) Joint Replacement: No Pacemaker: No Other Surgery: Yes Social History Alcohol Use: Yes (Occ.) Tobacco Use: No (NEVER) Substance Use: No Allergies-Medications (Allergen,Severity, Reaction): Coded Allergies: No Known Allergies (Verified Allergy, Unknown, 09/18/17) Reported Meds & Prescriptions Reported Meds & Active Scripts Active Naproxen 500 Mg Tab 500 Mg PO BID 30 Days Reported Methimazole 5 Mg Tab 5 Mg PO BID Ibuprofen 800 Mg Tab 800 Mg PO Q6HR PRN Review of Systems Except as stated in HPI: all other systems reviewed are Neg General / Constitutional: No: Fever Physical Exam Narrative GENERAL: 42-year-old female pleasant well-nourished well-developed mild distress Vital Signs Date Time Temp Pulse Resp B/P (MAP) Pulse Ox O2 Delivery O2 Flow Rate FiO2 09/18/17 13:06 80 16 100 Room Air 09/18/17 13:01 98.4 80 16 131/87 (102) 100 SKIN: Warm and dry. HEAD: Atraumatic. Normocephalic. EYES: Pupils equal and round. No scleral icterus. No injection or drainage. ENT: No nasal bleeding or discharge. Mucous membranes pink and moist. Minimal erythema about the oropharynx without tonsillar hypertrophy or exudate or asymmetry. No depressions are palpable. The voice is somewhat hoarse. NECK: Trachea midline. No JVD. CARDIOVASCULAR: Regular rate and rhythm. RESPIRATORY: No accessory muscle use. Clear to auscultation. Breath sounds equal bilaterally. GASTROINTESTINAL: Abdomen soft, non-tender, nondistended. Hepatic and splenic margins not palpable. MUSCULOSKELETAL: Extremities without clubbing, cyanosis, or edema. No obvious deformities. NEUROLOGICAL: Awake and alert. No obvious cranial nerve deficits. Motor grossly within normal limits. Five out of 5 muscle strength in the arms and legs. Normal speech. PSYCHIATRIC: Appropriate mood and affect; insight and judgment normal. Data Data Last Documented VS Vital Signs Date Time Temp Pulse Resp B/P (MAP) Pulse Ox O2 Delivery O2 Flow Rate FiO2 09/18/17 13:06 80 16 100 Room Air 09/18/17 13:01 98.4 131/87 (102) Orders Orders Complete Blood Count With Diff (09/18/17 13:17) Basic Metabolic Panel (Bmp) (09/18/17 13:17) Act Partial Throm Time (Ptt) (09/18/17 13:17) Prothrombin Time / Inr (Pt) (09/18/17 13:17) Ckmb (Isoenzyme) Profile (09/18/17 13:17) Troponin I (09/18/17 13:17) Iv Access Insert/Monitor (09/18/17 13:17) Electrocardiogram (09/18/17 13:17) Ecg Monitoring (09/18/17 13:17) Oximetry (09/18/17 13:17) Oxygen Administration (09/18/17 13:17) Chest, Single Ap (09/18/17 13:17) Sodium Chloride 0.9% Flush (Ns Flush) (09/18/17 13:30) Albuterol Neb (Albuterol Neb) (09/18/17 13:30) Ketorolac Inj (Toradol Inj) (09/18/17 14:30) CKMB (09/18/17 13:50) CKMB% (09/18/17 13:50) Ed Discharge Order (09/18/17 14:34) Labs Laboratory Tests Test 09/18/17 13:50 White Blood Count 5.9 TH/MM3 Red Blood Count 4.08 MIL/MM3 Hemoglobin 11.0 GM/DL Hematocrit 33.4 % Mean Corpuscular Volume 81.9 FL Mean Corpuscular Hemoglobin 27.0 PG Mean Corpuscular Hemoglobin Concent 32.9 % Red Cell Distribution Width 15.4 % Platelet Count 298 TH/MM3 Mean Platelet Volume 9.7 FL Neutrophils (%) (Auto) 39.8 % Lymphocytes (%) (Auto) 46.9 % Monocytes (%) (Auto) 8.4 % Eosinophils (%) (Auto) 3.8 % Basophils (%) (Auto) 1.1 % Neutrophils # (Auto) 2.4 TH/MM3 Lymphocytes # (Auto) 2.7 TH/MM3 Monocytes # (Auto) 0.5 TH/MM3 Eosinophils # (Auto) 0.2 TH/MM3 Basophils # (Auto) 0.1 TH/MM3 CBC Comment DIFF FINAL Differential Comment Prothrombin Time 11.0 SEC Prothromb Time International Ratio 1.1 RATIO Activated Partial Thromboplast Time 28.5 SEC Blood Urea Nitrogen 15 MG/DL Creatinine 0.54 MG/DL Random Glucose 97 MG/DL Calcium Level 8.8 MG/DL Sodium Level 141 MEQ/L Potassium Level 3.8 MEQ/L Chloride Level 109 MEQ/L Carbon Dioxide Level 25.2 MEQ/L Anion Gap 7 MEQ/L Estimat Glomerular Filtration Rate 151 ML/MIN Total Creatine Kinase 252 U/L Creatine Kinase MB 2.4 NG/ML Creatine Kinase MB % 1.0 % Troponin I LESS THAN 0.02 NG/ML MDM Medical Decision Making Medical Screen Exam Complete: Yes Emergency Medical Condition: Yes Medical Record Reviewed: Yes Differential Diagnosis NSTEMI, unstable angina, coronary vasospasm, PE, PTX, aortic dissection, pericarditis, myocarditis, endocarditis, PNA, esophageal disease, aneurysm, musculoskeletal etiologies, anxiety, cocaine/sympathomimetic abuse Narrative Course CBC & BMP Diagram 09/18/17 13:50 Calcium Level 8.8 Tn < 0.02 EKG shows sinus rhythm with a normal axis intervals no ischemic injury pattern, rate 83 Last Impressions Chest X-Ray 09/18/17 1317 Signed Impressions: Service Date/Time: Monday, September 18, 2017 13:19 - CONCLUSION: No acute disease. No significant change has occurred. Neal Hale MD The patient is resting comfortably and feels better, is alert and in no distress. The patients results and examination findings were discussed. The repeat examination is unremarkable and benign. The history, exam, diagnostic testing, and current condition do not suggest any significant pathology to warrant further testing, continued ED treatment, admission, or surgical evaluation at this point. The vital signs have been stable. The patient does not have uncontrollable pain, intractable vomiting, or other significant symptoms. The patient's condition is stable and appropriate for discharge. The patient will pursue further outpatient evaluation with a primary care physician or other designated or consulting physician as indicated in the discharge instructions. The patient expressed understanding and was agreeable with this plan. Diagnosis Primary Impression: Atypical chest pain Referrals: Primary Care Physician call for appointment Med/Other Pt SpecificInfo: No Change to Meds Disposition: 01 DISCHARGE HOME Condition: Stable Pedro Lasren MD September 18, 2017 13:42
[2017-09-18 14:00] LABS: AUTOMATED NEUTROPHIL # 2.4 TH/MM3 (1.8-7.7); BASOPHIL # 0.1 TH/MM3 (0-0.2); BASOPHIL % 1.1 % (0.0-2.0); EOSINOPHIL # 0.2 TH/MM3 (0-0.4); EOSINOPHIL % 3.8 % (0.0-4.0); HEMATOCRIT 33.4 % (35.0-46.0); LYMPH % 46.9 % (9.0-44.0); LYMPHOCYTE # 2.7 TH/MM3 (1.0-4.8); MEAN CELL VOLUME 81.9 FL (80.0-100.0); MEAN CORPUSCULAR HGB CONC 32.9 % (32.0-36.0); MEAN PLATELET VOLUME 9.7 FL (7.0-11.0); MONO % 8.4 % (0.0-8.0); MONOCYTE # 0.5 TH/MM3 (0-0.9); NEUT % 39.8 % (16.0-70.0); PLATELET COUNT 298 TH/MM3 (150-450); RED BLOOD COUNT 4.08 MIL/MM3 (4.00-5.30); RED CELL DISTRIBUTION WIDTH 15.4 % (11.6-17.2); WHITE BLOOD COUNT 5.9 TH/MM3 (4.0-11.0)
[2017-09-18 14:12] LABS: CHLORIDE 109 MEQ/L (98-107); SODIUM (NA) 141 MEQ/L (136-145)
[2017-09-18 14:16] LABS: CALCIUM 8.8 MG/DL (8.5-10.1)
[2017-09-18 14:17] LABS: BICARBONATE 25.2 MEQ/L (21.0-32.0); BLOOD UREA NITROGEN 15 MG/DL (7-18); GLUCOSE,RANDOM 97 MG/DL (74-106)
[2017-09-18 14:20] LABS: CREATININE 0.54 MG/DL (0.50-1.00); GLOMERULAR FILTRATION RATE 151 ML/MIN (>89)
[2017-09-18 14:21] LABS: INTERNATIONAL NORMALIZED RATIO 1.1 RATIO
[2017-09-18 14:24] LABS: TROPONIN I LESS THAN 0.02 NG/ML (0.02-0.05)
[2017-09-18] MEDS ORDERED: KETOROLAC TROMETHAMINE 30 MG/ML (IVP) VIAL IV PUSH ONE (14:30)
[2017-09-18 15:15] VITALS: BP 106/65; PULSE 79; RESP 16; O2SAT 99
--- NOTE | 2017-09-19 14:16 | EKG ---
Date Performed: 09/18/2017 Time Performed: 12:55:32 PTAGE: 42 years EKG: Sinus rhythm NORMAL ECG Since the PREVIOUS TRACING , no significant change noted PREVIOUS TRACIN05/30/2017 18.31 DOCTOR: Carrie Gonzalez Interpretating Date/Time 09/19/2017 14:14:22
== END 2017-09-18 15:26 | disposition home or self-care (01) ==
LOC: PHED 12:45
DX: R07.89 Other chest pain (principal); R55 Syncope and collapse; M54.5 Low back pain; E03.9 Hypothyroidism, unspecified
CPT/HCPCS: 71045; 80048; 82550; 82552; 84484; 85025; 85610; 85730; 93005; 94664; 96374; 99285; J1885; J7613